=== PATIENT | male | born 1975 | race Caucasian/White ===

== ENCOUNTER 2018-02-06 13:43 | Emergency (ER) | payer OTHER ==
--- NOTE | 2018-02-06 15:00 | ER ---
Nurse's Notes [facility] Name: Coreen Lau Jr Age: 42 yrs Sex: Male : 1975 Arrival Date: 02/06/2018 Time: 13:45 Bed 12 Private MD: Out, [facility] Diagnosis: Acute maxillary sinusitis Presentation: 02/06 14:06 Presenting complaint: Patient states: when i look i feel,like i have "pulsing" on my hj forehead for few days now; denies fever and chills;. Transition of care: patient was not received from another setting of care. Onset of symptoms was February 06, 2018. Risk Assessment: Do you want to hurt yourself or someone else? Patient reports no desire to harm self or others. Initial Sepsis Screen: Does the patient meet any 2 criteria? No. Patient's initial sepsis screen is negative. Does the patient have a suspected source of infection? No. Patient's initial sepsis screen is negative. Care prior to arrival: None. 14:06 Method Of Arrival: Ambulatory 14:06 Acuity: SHAILA 4 hj Triage Assessment: 14:08 Headache History: Denies prior headaches. General: Appears in no apparent distress. hj uncomfortable, Behavior is calm, cooperative, appropriate for age. Pain: Complains of pain in head Pain currently is 8 out of 10 on a pain scale. Neuro: Level of Consciousness is awake, alert, obeys commands, Oriented to person, place, time, situation, Appropriate for age. 14:08 Pain: Pain began Also complains of sleeplessness. hj Historical: - Allergies: 14:07 Phenergan; - Home Meds: 14:07 Dilantin Oral [Active]; Keppra Oral [Active]; Januvia oral oral [Active]; hj - PMHx: 14:07 Diabetes - NIDDM; Pancreatitis; Seizures; hj - PSHx: 14:07 None; hj - Immunization history:: Adult Immunizations unknown. - Social history:: Smoking status: Patient/guardian denies using tobacco, Patient/guardian denies using alcohol. - Ebola Screening: : Patient negative for fever greater than or equal to 101.5 degrees Fahrenheit, and additional compatible Ebola Virus Disease symptoms Patient denies exposure to infectious person Patient denies travel to an Ebola-affected area in the 21 days before illness onset. Screenin:08 Abuse screen: Denies threats or abuse. Denies injuries from another. Nutritional hj screening: No deficits noted. Tuberculosis screening: No symptoms or risk factors identified. Fall Risk None identified. Vital Signs: 14:08 BP 127 / 84; Pulse 81; Resp 18; Temp 97.0(TE); Pulse Ox 100% on R/A; Weight 83.46 kg; hj Height 5 ft. 10 in. (177.80 cm); Pain 8/10; 14:08 Body Mass Index 26.40 (83.46 kg, 177.80 cm) ED Course: 13:45 Patient arrived in ED. sb2 13:45 Out, of Town is Private Physician. sb2 14:07 Triage completed. hj 14:08 Arm band placed on left wrist. hj 14:08 Patient has correct armband on for positive identification. Bed in low position. Call hj light in reach. Side rails up X 1. 14:46 Kevin Johnson MD is Attending Physician. 14:59 Maribeth Nails MD is Referral Physician. Administered Medications: No medications were administered Outcome: 14:59 Discharge ordered by . gs 15:16 Patient left the ED. dm5 Signatures: Lorraine Sherman RN RN dm5 Tevin Mcgowan RN RN Kevin Johnson MD MD Damari Chen sb2 Corrections: (The following items were deleted from the chart) 14:10 14:08 Pulse 81bpm; Resp 18bpm; Pulse Ox 100% RA; Temp 97.0F Temporal; 83.46 kg; Height hj 5 ft. 10 in.; BMI: 26.4; Pain 8/10; hj
--- NOTE | 2018-02-06 15:00 | EDPHYS ---
Physician Documentation [facility] Name: Coreen Lau Jr Age: 42 yrs Sex: Male : 1975 Arrival Date: 02/06/2018 Time: 13:45 Bed 12 Private MD: Out, [facility] ED Physician Kevin Johnson HPI: 02/06 14:53 This 42 yrs old Male presents to ER via Ambulatory with complaints of Sinus gs Pain. 14:53 Onset: The symptoms/episode began/occurred gradually, 2 day(s) ago. Severity of gs symptoms: At their worst the symptoms were moderate, in the emergency department the symptoms are unchanged. Modifying factors: The symptoms are alleviated by nothing, the symptoms are aggravated by nothing. Associated signs and symptoms: Pertinent negatives: chest pain, fever. The patient has experienced similar episodes in the past, several times. Historical: - Allergies: 14:07 Phenergan; hj - Home Meds: 14:07 Dilantin Oral [Active]; Keppra Oral [Active]; Januvia oral oral [Active]; hj - PMHx: 14:07 Diabetes - NIDDM; Pancreatitis; Seizures; hj - PSHx: 14:07 None; hj - Immunization history:: Adult Immunizations unknown. - Social history:: Smoking status: Patient/guardian denies using tobacco, Patient/guardian denies using alcohol. - Ebola Screening: : Patient negative for fever greater than or equal to 101.5 degrees Fahrenheit, and additional compatible Ebola Virus Disease symptoms Patient denies exposure to infectious person Patient denies travel to an Ebola-affected area in the 21 days before illness onset. ROS: 14:53 ENT: Positive for nasal discharge, sinus congestion, sinus pain. gs 14:53 All other systems are negative. Exam: 14:53 Head/Face: Normocephalic, atraumatic. Eyes: Pupils equal round and reactive to light, gs extra-ocular motions intact. Lids and lashes normal. Conjunctiva and sclera are non-icteric and not injected. Cornea within normal limits. Periorbital areas with no swelling, redness, or edema. Neck: Trachea midline, no thyromegaly or masses palpated, and no cervical lymphadenopathy. Supple, full range of motion without nuchal rigidity, or vertebral point tenderness. No Meningismus. Chest/axilla: Normal chest wall appearance and motion. Nontender with no deformity. No lesions are appreciated. Cardiovascular: Regular rate and rhythm with a normal S1 and S2. No gallops, murmurs, or rubs. Normal PMI, no JVD. No pulse deficits. Respiratory: Lungs have equal breath sounds bilaterally, clear to auscultation and percussion. No rales, rhonchi or wheezes noted. No increased work of breathing, no retractions or nasal flaring. Abdomen/GI: Soft, non-tender, with normal bowel sounds. No distension or tympany. No guarding or rebound. No evidence of tenderness throughout. Back: No spinal tenderness. No costovertebral tenderness. Full range of motion. Skin: Warm, dry with normal turgor. Normal color with no rashes, no lesions, and no evidence of cellulitis. MS/ Extremity: Pulses equal, no cyanosis. Neurovascular intact. Full, normal range of motion. Neuro: Awake and alert, GCS 15, oriented to person, place, time, and situation. Cranial nerves II-XII grossly intact. Motor strength 5/5 in all extremities. Sensory grossly intact. Cerebellar exam normal. Normal gait. 14:53 Constitutional: The patient appears alert, awake. 14:53 Head/face: Sinus tenderness, that is mild, is located over the right maxillary sinus and left maxillary sinus. 14:53 ENT: Nose: Nasal mucosa: edematous, erythematous, Posterior pharynx: is normal. Vital Signs: 14:08 BP 127 / 84; Pulse 81; Resp 18; Temp 97.0(TE); Pulse Ox 100% on R/A; Weight 83.46 kg; hj Height 5 ft. 10 in. (177.80 cm); Pain 8/10; 14:08 Body Mass Index 26.40 (83.46 kg, 177.80 cm) hj MDM: 14:53 Patient medically screened. 14:53 Differential Diagnosis: Upper Respiratory Infection Allergic Rhinitis Viral Syndrome gs Other sinusitus. Data reviewed: vital signs, nurses notes. Counseling: I had a detailed discussion with the patient and/or guardian regarding: the historical points, exam findings, and any diagnostic results supporting the discharge/admit diagnosis. Special discussion: I discussed with the patient/guardian that the patient's current presentation does not indicate dosing of antibiotics. They should follow-up with their primary care provider and return if the symptoms persist or progress. Administered Medications: No medications were administered Disposition: 02/06/18 14:59 Discharged to Home. Impression: Acute maxillary sinusitis. - Condition is Stable. - Discharge Instructions: Sinusitis, Adult. - Medication Reconciliation Form, Thank You Letter, Antibiotic Education, Prescription Opioid Use form. - Follow up: Maribeth Nails MD; When: 2 - 3 days; Reason: Re-evaluation by your physician. - Notes: instructed to take flonase,zyrtec and sinus irrigation with steril saline all available over the counter Signatures: Lorraine Sherman, RN RN dm5 Tevin Mcgowan RN RN Kevin Johnson MD MD gs Corrections: (The following items were deleted from the chart) 15:16 14:59 02/06/2018 14:59 Discharged to Home. Impression: Acute maxillary sinusitis. dm5 Condition is Stable. Forms are Medication Reconciliation Form, Thank You Letter, Antibiotic Education, Prescription Opioid Use. Follow up: Maribeth Nails; When: 2 - 3 days; Reason: Re-evaluation by your physician. gs
== END 2018-02-06 15:16 | disposition home or self-care (01) ==
LOC: ER 13:43
DX: J01.00 Acute maxillary sinusitis, unspecified (principal); E11.9 Type 2 diabetes mellitus without complications; Z79.84 Long term (current) use of oral hypoglycemic drugs; G40.909 Epilepsy, unspecified, not intractable, without status epilepticus; Z88.8 Allergy status to other drugs, medicaments and biological substances
CPT/HCPCS: 99281

== ENCOUNTER 2018-09-20 11:51 | Emergency (ER) | payer OTHER ==
--- NOTE | 2018-09-20 14:23 | RAD REPORT ---
EXAM DESCRIPTION: CT - Spine Lumbar Wo Con - 09/20/2018 2:05 pm CLINICAL HISTORY: Radiculopathy. LOWER BACK PAIN COMPARISON: No comparisons TECHNIQUE: Axial noncontrast CT imaging of the lumbar spine was performed with coronal and sagittal re-formatted images. All CT scans are performed using dose optimization technique as appropriate and may include automated exposure control or mA/KV adjustment according to patient size. FINDINGS: No acute lumbar spine fracture seen. No aggressive marrow pattern or malalignment. Paraspinal tissues are normal in thickness. No paraspinal abscess or hematoma seen. 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 Mild posterior disc bulges are present involving the lower lumba r spine. IMPRESSION: No acute lumbar spine abnormality is detected. Consider MRI follow-up for assessment of disc disease if clinically desired.
[2018-09-20] MEDS ORDERED: METHOCARBAMOL 1,000 MG/10 ML VIAL IV ONE (14:48)
[2018-09-20] MEDS ORDERED: DEXAMETHASONE 10 MG/ML VIAL ONE (14:48)
[2018-09-20] MEDS ORDERED: NA CHLORIDE 0.9% 100 ML IV ONE (14:48)
[2018-09-20] MEDS ORDERED: KETOROLAC 30 MG/ML INJ ONE (14:48)
[2018-09-20] MEDS ORDERED: FENTANYL CITR 100 MCG/2 ML ONE (16:07)
--- NOTE | 2018-09-20 16:12 | ER ---
Nurse's Notes [facility] Name: Coreen Lau Jr Age: 42 yrs Sex: Male : 1975 Arrival Date: 09/20/2018 Time: 11:55 Bed 13 Private MD: Diagnosis: Low back pain Presentation: 09/20 12:09 Presenting complaint: Patient states: low back pain started Tuesday and when he moves sv his feet or looks down he feels the pain go up his back. Denies fall or injury. Transition of care: patient was not received from another setting of care. Onset of symptoms was September 17, 2018. Care prior to arrival: None. 12:09 Method Of Arrival: Wheelchair sv 12:09 Acuity: SHAILA 4 sv 12:09 Acuity: SHAILA 3 sv 14:52 Risk Assessment: Do you want to hurt yourself or someone else? Patient reports no ph desire to harm self or others. Initial Sepsis Screen: Does the patient meet any 2 criteria? No. Patient's initial sepsis screen is negative. Does the patient have a suspected source of infection? No. Patient's initial sepsis screen is negative. Triage Assessment: 12:09 General: Appears in no apparent distress. uncomfortable, well developed, Behavior is sv calm, cooperative, appropriate for age. Pain: Complains of pain in back Pain currently is 10 out of 10 on a pain scale. Neuro: Level of Consciousness is awake, alert, obeys commands, Oriented to person, place, time, situation. Respiratory: Respiratory effort is even, unlabored, Respiratory pattern is regular, symmetrical. Historical: - Allergies: 12:13 No Known Allergies; sv - PMHx: 12:13 Diabetes - NIDDM; Pancreatitis; Seizures; epilepsy; sv - PSHx: 12:13 None; sv - Immunization history:: Adult Immunizations unknown. - Social history:: Patient/guardian denies using alcohol, street drugs, IV drugs, tobacco products, Smoking status: unknown. - Ebola Screening: : No symptoms or risks identified at this time. Screenin:52 Abuse screen: Denies threats or abuse. Denies injuries from another. Nutritional ph screening: No deficits noted. Tuberculosis screening: No symptoms or risk factors identified. Fall Risk None identified. Assessment: 14:00 General: Appears in no apparent distress. uncomfortable, well groomed, Behavior is ph calm, cooperative, appropriate for age. Pain: Complains of pain in low back area Pain radiates to lumbar area and left leg. Neuro: Level of Consciousness is awake, alert, obeys commands, Oriented to person, place, time, situation. Cardiovascular: Capillary refill < 3 seconds in bilateral fingers Patient's skin is warm and dry. Respiratory: Airway is patent Respiratory effort is even, unlabored, Respiratory pattern is regular, symmetrical. GI: No signs and/or symptoms were reported involving the gastrointestinal system. : Reports pain in bilateral in lower back Denies burning with urination, inability to void, urinary frequency. Derm: Skin is intact, is healthy with good turgor, Skin is pink, warm \T\ dry. Musculoskeletal: Circulation, motion, and sensation intact. 15:00 Reassessment: Patient appears in no apparent distress at this time. Patient and/or ph family updated on plan of care and expected duration. Pain level reassessed. Patient is alert, oriented x 3, equal unlabored respirations, skin warm/dry/pink. 16:00 Reassessment: Patient appears in no apparent distress at this time. Patient and/or ph family updated on plan of care and expected duration. Pain level reassessed. Patient is alert, oriented x 3, equal unlabored respirations, skin warm/dry/pink. Pt reports that pain has improved to 7/10 after additional pain medication. 16:20 Reassessment: Patient appears in no apparent distress at this time. Patient is alert, ph oriented x 3, equal unlabored respirations, skin warm/dry/pink. Pt d/c home w/ SO, ambulatory to [facility]. Vital Signs: 12:13 BP 112 / 79; Pulse 94; Resp 16; Temp 98.5; Pulse Ox 100% ; Weight 79.38 kg; Height 5 sv ft. 9 in. (175.26 cm); Pain 10/10; 14:30 BP 107 / 78; Pulse 87; Resp 18; Pulse Ox 98% on R/A; Pain 10/10; ph 15:30 BP 112 / 76; Pulse 79; Resp 16; Pulse Ox 98% on R/A; Pain 8/10; ph 16:20 BP 110 / 76; Pulse 82; Resp 18; Temp 98.2; Pulse Ox 99% ; Pain 7/10; ph 12:13 Body Mass Index 25.84 (79.38 kg, 175.26 cm) sv ED Course: 11:55 Patient arrived in ED. mr 12:12 Triage completed. sv 12:13 Arm band placed on. sv 13:25 Derrick Portillo PA is PHCP. jr8 13:25 Franklin Ledbetter MD is Attending Physician. jr8 13:30 Jazmin Morales, RN is Primary Nurse. ph 14:03 CT completed. Patient tolerated procedure well. Patient moved to CT via wheelchair. sj Patient moved back from CT. 14:05 CT Lumbar Spine Wo Con In Process Unspecified. EDMS 14:20 Missed attempt(s): 22 gauge in right antecubital area. Bleeding controlled, band aid jp3 applied, catheter tip intact. 14:25 Inserted saline lock: 22 gauge in left forearm, using aseptic technique. jp3 14:28 Bed in low position. Call light in reach. Side rails up X 1. Warm blanket given. Pillow jp3 given. 14:52 No provider procedures requiring assistance completed. ph 15:27 Urine Dipstick--Ancillary (enter results) Sent. jp3 16:26 IV discontinued, intact, bleeding controlled, No redness/swelling at site. Pressure ph dressing applied. Administered Medications: 14:50 Drug: Decadron - Dexamethasone 10 mg Route: IVP; Site: left antecubital; ph 16:22 Follow up: Response: No adverse reaction ph 14:51 Drug: Robaxin 1 grams Route: IVPB; Infused Over: 1 hrs; Site: left antecubital; ph 16:00 Follow up: Response: No adverse reaction; IV Status: Completed infusion ph 14:51 Drug: TORadol - Ketorolac 15 mg Route: IVP; Site: left antecubital; ph 16:22 Follow up: Response: No adverse reaction ph 16:00 Drug: fentaNYL (PF) 50 mcg Route: IVP; Site: left antecubital; ph 16:22 Follow up: Response: No adverse reaction; Pain is decreased ph Outcome: 16:12 Discharge ordered by . jr8 16:24 Discharged to home ambulatory, with significant other. ph 16:24 Condition: improved 16:24 Discharge instructions given to patient, significant other, Instructed on discharge instructions, follow up and referral plans. medication usage, Heat therapy Demonstrated understanding of instructions, follow-up care, medications, Prescriptions given X 1. 16:26 Patient left the ED. ph Signatures: Dispatcher [employer] Maribeth Kirkpatrick RN RN Henrique, Delma mr Andres, Derrick Gandara PA PA jr8 Jazmin Morales RN RN Deyvi Webb jp3
--- NOTE | 2018-09-20 16:12 | EDPHYS ---
Physician Documentation [facility] Name: Coreen Lau Jr Age: 42 yrs Sex: Male : 1975 Arrival Date: 09/20/2018 Time: 11:55 Bed 13 Private MD: ED Physician Franklin Ledbetter HPI: 09/20 13:40 This 42 yrs old Male presents to ER via Wheelchair with complaints of Back jr8 Pain. 13:40 The patient presents with pain that is acute, with no known mechanism of injury. The jr8 symptoms are located in the low back. Onset: The symptoms/episode began/occurred acutely, 3 day(s) ago. The pain radiates to the left leg. Associated signs and symptoms: Pertinent negatives: abdominal pain, chest pain, constipation, dysuria, fever, headache, hematuria, incontinence, nausea, numbness, tingling, urinary retention, vomiting, weakness. The problem was sustained from unknown cause. Modifying factors: The patient symptoms are alleviated by nothing, the patient symptoms are aggravated by any movement. The patient has not experienced similar symptoms in the past. The patient has been recently seen by a physician: [facility] 3 day(s) ago, with similar presenting complaints, and apparently given a diagnosis of low back strain, but the patient's symptoms have persisted. Historical: - Allergies: 12:13 No Known Allergies; sv - PMHx: 12:13 Diabetes - NIDDM; Pancreatitis; Seizures; epilepsy; sv - PSHx: 12:13 None; sv - Immunization history:: Adult Immunizations unknown. - Social history:: Patient/guardian denies using alcohol, street drugs, IV drugs, tobacco products, Smoking status: unknown. - Ebola Screening: : No symptoms or risks identified at this time. ROS: 13:40 Constitutional: Negative for fever, chills, and weight loss, Cardiovascular: Negative jr8 for chest pain, palpitations, and edema, Respiratory: Negative for shortness of breath, cough, wheezing, and pleuritic chest pain, Abdomen/GI: Negative for abdominal pain, nausea, vomiting, diarrhea, and constipation, MS/Extremity: Negative for injury and deformity, Skin: Negative for injury, rash, and discoloration, Neuro: Negative for headache, weakness, numbness, tingling, and seizure, Psych: Negative for depression, anxiety, suicide ideation, homicidal ideation, and hallucinations. 13:40 Back: Positive for pain at rest, pain with movement, radiated pain. 14:01 : Negative for injury, bleeding, discharge, and swelling. jr8 Exam: 13:40 Head/Face: Normocephalic, atraumatic. Neck: Trachea midline, no thyromegaly or masses jr8 palpated, and no cervical lymphadenopathy. Supple, full range of motion without nuchal rigidity, or vertebral point tenderness. No Meningismus. Cardiovascular: Regular rate and rhythm with a normal S1 and S2. No gallops, murmurs, or rubs. Normal PMI, no JVD. No pulse deficits. Respiratory: Lungs have equal breath sounds bilaterally, clear to auscultation and percussion. No rales, rhonchi or wheezes noted. No increased work of breathing, no retractions or nasal flaring. Abdomen/GI: Soft, non-tender, with normal bowel sounds. No distension or tympany. No guarding or rebound. No evidence of tenderness throughout. Skin: Warm, dry with normal turgor. Normal color with no rashes, no lesions, and no evidence of cellulitis. MS/ Extremity: Pulses equal, no cyanosis. Neurovascular intact. Full, normal range of motion. Neuro: Awake and alert, GCS 15, oriented to person, place, time, and situation. Cranial nerves II-XII grossly intact. Motor strength 5/5 in all extremities. Sensory grossly intact. Cerebellar exam normal. Normal gait. 13:40 Constitutional: The patient appears alert, awake, non-diaphoretic, non-toxic, uncomfortable. 13:40 Back: pain, that is severe, of the lumbar area and left low back, ROM is painful, with all movement, with flexion, with extension, normal spinal alignment noted, no deformity, CVA tenderness, is absent, vertebral tenderness, is not appreciated, muscle spasm, is not present, Straight leg raises: pain bilaterally. Vital Signs: 12:13 BP 112 / 79; Pulse 94; Resp 16; Temp 98.5; Pulse Ox 100% ; Weight 79.38 kg; Height 5 sv ft. 9 in. (175.26 cm); Pain 10/10; 14:30 BP 107 / 78; Pulse 87; Resp 18; Pulse Ox 98% on R/A; Pain 10/10; ph 15:30 BP 112 / 76; Pulse 79; Resp 16; Pulse Ox 98% on R/A; Pain 8/10; ph 16:20 BP 110 / 76; Pulse 82; Resp 18; Temp 98.2; Pulse Ox 99% ; Pain 7/10; ph 12:13 Body Mass Index 25.84 (79.38 kg, 175.26 cm) sv MDM: 13:25 Patient medically screened. [facility] 16:09 Differential diagnosis: chronic back pain, ruptured disc, spinal injury, low back jr8 sprain. Data reviewed: vital signs, nurses notes, lab test result(s), urinalysis, radiologic studies, CT scan. Counseling: I had a detailed discussion with the patient and/or guardian regarding: the historical points, exam findings, and any diagnostic results supporting the discharge/admit diagnosis, lab results, radiology results, the need for outpatient follow up, a family practitioner, to return to the emergency department if symptoms worsen or persist or if there are any questions or concerns that arise at home. Response to treatment: the patient's symptoms have markedly improved after treatment, patient is well hydrated. ED course: Patient responded well to medication. Is resting comfortably. Spoke with patient regarding prescriptions, follow up, and home care. Patient agrees to plan of care. . 09/20 14:51 Order name: Urine Dipstick--Ancillary (enter results) bd 09/20 13:52 Order name: CT Lumbar Spine Wo Con; Complete Time: 14:24 [facility] 09/20 13:51 Order name: Urine Dipstick-Ancillary (obtain specimen); Complete Time: 16:10 [facility] 09/20 13:52 Order name: IV; Complete Time: 14:28 [facility] Administered Medications: 14:50 Drug: Decadron - Dexamethasone 10 mg Route: IVP; Site: left antecubital; ph 16:22 Follow up: Response: No adverse reaction ph 14:51 Drug: Robaxin 1 grams Route: IVPB; Infused Over: 1 hrs; Site: left antecubital; ph 16:00 Follow up: Response: No adverse reaction; IV Status: Completed infusion ph 14:51 Drug: TORadol - Ketorolac 15 mg Route: IVP; Site: left antecubital; ph 16:22 Follow up: Response: No adverse reaction ph 16:00 Drug: fentaNYL (PF) 50 mcg Route: IVP; Site: left antecubital; ph 16:22 Follow up: Response: No adverse reaction; Pain is decreased ph Disposition: 18:37 Co-signature as Attending Physician, Franklin Ledbetter MD. rn Disposition: 09/20/18 16:12 Discharged to Home. Impression: Low back pain. - Condition is Stable. - Discharge Instructions: Back Pain, Adult, Back Injury Prevention, [id number], Back Exercises, [id number], Heat Therapy. - Prescriptions for Skelaxin 800 mg Oral Tablet - take 1 tablet by ORAL route every 8 hours As needed; 30 tablet. - Medication Reconciliation Form, Thank You Letter, Antibiotic Education, Prescription Opioid Use, Work release form form. - Follow up: Private Physician; When: 5 - 6 days; Reason: If symptoms return, Recheck today's complaints, Re-evaluation by your physician. - Problem is new. - Symptoms have improved. Signatures: Dispatcher [employer] Maribeth Kirkpatrick RN RN sv Nieto, Roman, MD MD rn Roszak, Josh, PA PA jr8 Jazmin Morales RN RN ph Corrections: (The following items were deleted from the chart) 16:26 16:12 09/20/2018 16:12 Discharged to Home. Impression: Low back pain. Condition is ph Stable. Forms are Medication Reconciliation Form, Thank You Letter, Antibiotic Education, Prescription Opioid Use. Follow up: Private Physician; When: 5 - 6 days; Reason: If symptoms return, Recheck today's complaints, Re-evaluation by your physician. Problem is new. Symptoms have improved. jr8
[2018-09-20 19:06] LABS: Urine Blood NEGATIVE (NEG); Urine Glucose 2+ (NEG); Urine Protein NEGATIVE (NEG); Urine Specific Gravity 1.015 (1.005-1.030)
== END 2018-09-20 16:26 | disposition home or self-care (01) ==
LOC: ER 11:51
DX: M54.5 Low back pain (principal); E11.9 Type 2 diabetes mellitus without complications; G40.909 Epilepsy, unspecified, not intractable, without status epilepticus
CPT/HCPCS: 72131; 81003; 96365; 96375; 99284; J1100; J2800; J3010

== ENCOUNTER 2019-03-12 08:04 | Inpatient (IN) | payer BC, OTHER ==
[2019-03-12] MEDS ORDERED: NA CHLORIDE 0.9% 3,000 ML ONE (08:41)
[2019-03-12 08:42] LABS: Absolute Lymphocytes (CBC) 1.1 K/uL (0.7-4.9); Basophils % 0.1 % (0-1.3); Hematocrit 50.1 % (39.6-49.0); Lymphocytes % 7.5 % (15.3-44.8); MPV 8.8 fL (7.6-11.3); RBC Red Blood Cell Count 5.59 M/uL (4.33-5.43)
[2019-03-12] MEDS ORDERED: CEFTRIAXONE/SWI 1gm 2 GM/20 ML SYR ONE (08:50)
[2019-03-12 09:00] LABS: Albumin 4.3 g/dL (3.4-5.0); Bilirubin Direct 0.2 mg/dL (0-0.2); Bilirubin Total 0.9 mg/dL (0.2-1.0); Potassium 4.2 mmol/L (3.5-5.1); Protein, Total 7.9 g/dL (6.4-8.2)
--- NOTE | 2019-03-12 09:05 | RAD REPORT ---
EXAM DESCRIPTION: CT - Head Brain Wo Cont - 03/12/2019 8:52 am CLINICAL HISTORY: Transient alteration of awareness COMPARISON: None. TECHNIQUE: Axial 5 mm thick images of the head were obtained without IV contrast. All CT scans are performed using dose optimization technique as appropriate and may include automated exposure control or mA/KV adjustment according to patient size. FINDINGS: No intracranial hemorrhage, mass, edema or shift of mid-line structures. No acute infarcti on changes seen. No abnormal extra-axial fluid collections. Ventricles are normal. Mastoid air cells are clear. Partially visualized right maxillary sinus is fully opacified. Sinus wal l thickening is present. No acute bony findings. IMPRESSION: No intracranial abnormality identifiable. Chronic sinusitis of the right maxillary sinus.
[2019-03-12 09:07] LABS: Barbiturates NEGATIVE (NEGATIVE); Benzodiazepines NEGATIVE (NEGATIVE); Cocaine NEGATIVE (NEGATIVE); METHAMPHETAM NEGATIVE (NEGATIVE); Methadone NEGATIVE (NEGATIVE); Opiates NEGATIVE (NEGATIVE); Phencyclidine NEGATIVE (NEGATIVE); THC Cannibis NEGATIVE (NEGATIVE)
[2019-03-12 09:26] LABS: Protime INR 1.07
[2019-03-12 09:30] LABS: Arterial Blood Carboxyhemoglob 1.4 % (0-1.5); Blood Gas Oxyhemoglobin 93.4 % (94-97); Blood O2 Saturation 95.6 % (92-98.5)
--- NOTE | 2019-03-12 09:39 | RAD REPORT ---
EXAM DESCRIPTION: RAD - Chest Single View - 03/12/2019 8:53 am CLINICAL HISTORY: Cough COMPARISON: August 2016 TECHNIQUE: AP portable chest image was obtained 0847 hours . FINDINGS: Lungs are clear. Heart and vasculature are normal. No measurable pleural effusion and no p neumothorax. No acute bony abnormality seen. No acute aortic findings suspected. IMPRESSION: No acute cardiopulmonary process. No significant interval change.
[2019-03-12 09:43] LABS: NT PRO-BNP 94 pg/mL (<125); Phenytoin (Dilantin) Level 12.3 ug/mL (10.0-20.0); Troponin (Emerg Dept Use Only) < 0.02 ng/mL (0.0-0.045)
[2019-03-12 09:54] LABS: Blood Morphology Comment NOT SEEN (NOT SEEN); Platelet Estimate ADEQ; Urine White Blood Cell Casts OK
--- NOTE | 2019-03-12 10:26 | ER ---
Nurse's Notes [facility] Name: Coreen Lau Jr Age: 43 yrs Sex: Male : 1975 Arrival Date: 03/12/2019 Time: 08:09 Bed 5 Private MD: Out, [facility] Diagnosis: Fever, unspecified;Vomiting;Elevated white blood cell count;Type 2 diabetes mellitus;Weakness;Acute sinusitis Presentation: 03/12 08:12 Presenting complaint: states: vomiting, subjective fever x 1 day. c/o congestion sv recently. Hx DM but does not take any of his meds for it because it makes him sick. Transition of care: patient was not received from another setting of care. Onset of symptoms was March 11, 2019. Initial Sepsis Screen: Does the patient meet any 2 criteria? No. Patient's initial sepsis screen is negative. Does the patient have a suspected source of infection? No. Patient's initial sepsis screen is negative. Care prior to arrival: Medication(s) given: Phenergan, taken \T\0300 Tylenol, taken \T\0400. 08:12 Method Of Arrival: Ambulatory sv 08:12 Acuity: SHAILA 3 sv 08:20 Risk Assessment: Do you want to hurt yourself or someone else? Patient reports no ph desire to harm self or others. 08:20 Initial Sepsis Screen: Does the patient meet any 2 criteria?. ph Triage Assessment: 08:15 General: Appears in no apparent distress. uncomfortable, Behavior is cooperative, sv restless. Pain: Denies pain. Neuro: Level of Consciousness is awake, obeys commands, lethargic, Oriented to person, place, time, situation. Respiratory: Respiratory effort is even, unlabored, Respiratory pattern is regular, symmetrical. GI: Reports vomiting. Derm: Skin is clammy, Skin is normal. Historical: - Allergies: 08:23 No Known Allergies; sv - Home Meds: 08:23 Dilantin Oral [Active]; Januvia Oral [Active]; Keppra Oral [Active]; sv hydrocodone-acetaminophen 10-325 mg Oral tab [Active]; Adderall XR Oral [Active]; - PMHx: 08:23 Diabetes - NIDDM; epilepsy; Pancreatitis; Seizures; ADD/ADHD; sv - PSHx: 08:23 None; sv - Immunization history:: Adult Immunizations up to date. - Social history:: Smoking status: Patient uses tobacco products, chewing tobacco, Patient/guardian denies using alcohol. - Ebola Screening: : No symptoms or risks identified at this time. Screenin:19 Abuse screen: Denies threats or abuse. Denies injuries from another. Nutritional ph screening: No deficits noted. Tuberculosis screening: No symptoms or risk factors identified. 08:30 Fall Risk None identified. sv Assessment: 10:17 Reassessment: Patient appears in no apparent distress at this time. Patient and/or sv family updated on plan of care and expected duration. Pain level reassessed. Neuro: Level of Consciousness is obeys commands, lethargic. Respiratory: Airway is patent Respiratory effort is even, unlabored, Respiratory pattern is regular, symmetrical. 10:42 Reassessment: Patient and/or family updated on plan of care and expected duration. Pain sv level reassessed. GI: Pt is actively vomiting bile, smells of bowel, informed Dr Humphrey, nausea med ordered. 11:18 Reassessment: pt back from CT scan. C/O abdl pain, notified provider. General: Appears ca1 in no apparent distress. ill, Behavior is calm, cooperative, appropriate for age, drowsy. Pain: Complains of pain in abdomen Pain currently is 8 out of 10 on a pain scale. Cardiovascular: Heart tones S1 S2 present Capillary refill < 3 seconds Patient's skin is warm and dry. Rhythm is sinus rhythm. Respiratory: Airway is patent Respiratory effort is even, unlabored, Respiratory pattern is regular, symmetrical, Breath sounds are clear bilaterally. GI: Abdomen is flat, non-distended, Bowel sounds present X 4 quads. Abd is soft and non tender X 4 quads. Reports vomiting. : No deficits noted. No signs and/or symptoms were reported regarding the genitourinary system. EENT: No deficits noted. No signs and/or symptoms were reported regarding the EENT system. Derm: Skin is intact, is healthy with good turgor, Skin is pink, warm \T\ dry. Musculoskeletal: Circulation, motion, and sensation intact. Capillary refill < 3 seconds. 11:30 Reassessment: Pt c/o nausea and vomiting 50ml. Notified provider. ca1 11:53 Reassessment: Patient appears in no apparent distress at this time. Pt eye's closed, ca1 responds to verbal stimuli. Equal and unlabored breathing. Skin pink, warm and dry. Family still at bedside. 12:24 Reassessment: Patient appears in no apparent distress at this time. No changes from ca1 previously documented assessment. No reports of pain, N/V at this time. 13:19 Reassessment: Patient appears in no apparent distress at this time. Patient and/or ca1 family updated on plan of care and expected duration. Pain level reassessed. Pt vomited once 30mL. Pt c/o abdl pain. Notified provider. Orders given. 14:16 Reassessment: Patient appears in no apparent distress at this time. Patient and/or ca1 family updated on plan of care and expected duration. Pain level reassessed. Awaiting room assignment. No reports of N/V/pain at this time. Pt's eyes closed, awaken with verbal stimuli. Equal and unlabored breathing. Skin, pink, warm and dry. 15:01 Reassessment: Patient appears in no apparent distress at this time. No changes from ca1 previously documented assessment. Vital Signs: 08:24 BP 157 / 100; Pulse 89; Resp 20; Temp 97.7; Pulse Ox 99% ; sv 08:32 BP 157 / 94; sv 08:40 Weight 79.38 kg (R); sv 09:36 BP 160 / 84; Pulse 83; Resp 26; Pulse Ox 100% on 2 lpm NC; sv 10:13 BP 159 / 85; Pulse 86; Resp 18; Pulse Ox 100% on 2 lpm NC; sv 11:21 BP 141 / 71; Pulse 97; Resp 14; Pulse Ox 100% on R/A; ca1 12:17 BP 138 / 77; Pulse 102; Resp 28 S; Temp 99.1(TE); Pulse Ox 97% on R/A; ca1 13:19 BP 145 / 77; Pulse 92; Resp 26 S; Pulse Ox 98% on R/A; ca1 14:16 BP 153 / 86; Pulse 92; Resp 22 S; Pulse Ox 98% on R/A; ca1 15:01 BP 158 / 89; Pulse 99; Resp 19 S; Temp 98.9(O); Pulse Ox 99% on R/A; ca1 ED Course: 08:09 Patient arrived in ED. mr 08:15 Zohaib Humphrey MD is Attending Physician. dave 08:17 Kim, Maribeth, RN is Primary Nurse. sv 08:22 Triage completed. sv 08:24 Arm band placed on. sv 08:24 Patient has correct armband on for positive identification. Bed in low position. Call sv light in reach. Adult w/ patient. Pulse ox on. NIBP on. 08:30 Inserted saline lock: 20 gauge in right antecubital area, using aseptic technique. sv Blood collected. Flushed right antecubital with 5 ml normal saline. 08:33 Out, of [facility] is Private Physician. sv 08:44 Urine collected: clean catch specimen, tea colored. mh5 08:51 Urine Dipstick--Ancillary (enter results) Sent. mh5 08:51 Urine Drug Screen Sent. mh5 08:51 Urine Culture Sent. mh5 08:52 XRAY Chest (1 view) In Process Unspecified. EDMS 08:52 CT Head Brain wo Cont In Process Unspecified. EDMS 08:56 EKG done, by rfid technician. reviewed by Zohaib Humphrey MD. at1 09:06 Side rails up X2. Seizure precautions initiated. mh5 09:14 Dilantin Sent. sv 09:14 Magnesium Sent. sv 09:14 NT PRO-BNP Sent. sv 09:14 PT-INR Sent. sv 09:14 Troponin (emerg Dept Use Only) Sent. sv 09:30 ABG drawn. by RT staff, on room air. sv 09:36 Awaiting lab results. sv 09:46 Notified ED physician of a critical lab result(s). lactate-3.8. sv 10:24 Taco Patel MD is Hospitalizing Provider. dave 10:50 Armand Lawton MD is Hospitalizing Provider. dave 11:02 CT Chest, Abdomen, Pelvis - W/Contrast: iv only In Process Unspecified. EDMS 11:16 Report given to Shasha OLSEN. sv 11:20 No provider procedures requiring assistance completed. ca1 12:17 Repeat lab(s) drawn. by la, sent to lab. jp3 14:38 Shasha Fajardo, RN is Primary Nurse. ca1 14:51 Patient admitted, IV remains in place. ca1 Administered Medications: 09:14 Drug: NS 0.9% (30 ml/kg) 30 ml/kg Route: IV; Rate: bolus; Site: left forearm; sv 10:30 Follow up: Response: No adverse reaction; IV Status: Completed infusion; IV Intake: sv 2381ml 09:14 Drug: Rocephin 2 grams Route: IV; Rate: per protocol; Site: left forearm; sv 09:18 Follow up: Response: No adverse reaction; IV Status: Completed infusion; IV Intake: 20mlsv 10:46 Drug: Zofran 4 mg Route: IVP; Site: left forearm; ph 11:16 Follow up: Response: No adverse reaction; Marked relief of symptoms sv 10:55 Drug: Pepcid 20 mg Route: IVP; Site: left forearm; sv 11:16 Follow up: Response: No adverse reaction sv 10:55 Drug: Flagyl 500 mg Volume: 100 ml; Route: IVPB; Rate: 200 ml/hr; Infused Over: 30 sv mins; Site: left forearm; 12:27 Follow up: Response: No adverse reaction; IV Status: Completed infusion ca1 11:10 Drug: Fosphenytoin 500 mg Route: IVPB; Site: right antecubital; ca1 12:26 Follow up: Response: No adverse reaction; IV Status: Completed infusion ca1 11:21 Drug: morphine 2 mg {Note: RASS - -1.} Route: IVP; Site: right antecubital; ca1 12:26 Follow up: Response: No adverse reaction; Pain is decreased; RASS: Alert and Calm (0) ca1 11:29 Drug: Zofran 4 mg Route: IVP; Site: left antecubital; ca1 12:25 Follow up: Response: No adverse reaction; Nausea is decreased; Vomiting decreased ca1 11:30 Drug: NS 0.9% 1000 ml Route: IV; Rate: 125 ml/hr; Site: left antecubital; ca1 12:25 Follow up: IV Status: Infusion continued upon admission ca1 11:35 Drug: Insulin Regular Human 6 units {Co-Signature: iw (Nhi Fofana RN).} Route: ca1 Sub-Q; Site: left lower abdomen; 12:24 Follow up: Response: No adverse reaction; Blood sugar is lowered ca1 11:50 Drug: LanTUS 30 units Route: Sub-Q; Site: right lower abdomen; ca1 12:25 Follow up: Response: No adverse reaction ca1 13:21 Drug: morphine 2 mg {Note: RASS - -1.} Route: IVP; Site: left antecubital; ca1 14:19 Follow up: Response: No adverse reaction; Pain is decreased; RASS: Drowsy (-1) ca1 13:21 Drug: Phenergan 12.5 mg Route: IVP; Site: right antecubital; ca1 14:18 Follow up: Response: No adverse reaction; Nausea is decreased; Vomiting decreased ca1 Intake: 09:18 IV: 20ml; Total: 20ml. sv 10:30 IV: 2381ml; Total: 2401ml. sv Output: 10:45 Gastric: 500ml (Emesis); Total: 500ml. sv Outcome: 10:25 Decision to Hospitalize by Provider. dave 15:00 Admitted to Tele accompanied by tech, via wheelchair, room 424, with chart, Report ca1 called to PRETTY Dumont 15:00 Condition: stable 15:00 Instructed on the need for admit. 15:13 Patient left the ED. ca1 Signatures: Dispatcher [employer] EDMaribeth Marie RN RN sv Anderson, Corey, MD MD cha Rivera, Sigrid Fox, golf course designer EKG Tat1 Jazmin Morales RN RN Elizabeth Lawler 5 Deyvi Webb jp3 Shasha Fajardo RN RN ca1 Nhi Fofana RN iw Corrections: (The following items were deleted from the chart) 08:31 08:24 BP 157 / 100; Pulse 133bpm; Resp 20bpm; Pulse Ox 99%; Temp 97.7F; sv sv 14:17 14:16 Reassessment: Patient appears in no apparent distress at this time. No changes ca1 from previously documented assessment. Patient and/or family updated on plan of care and expected duration. Pain level reassessed. Awaiting room assignment ca1 14:18 12:17 BP 138 / 77; Pulse 102bpm; Resp 28bpm; Pulse Ox 97% RA; Temp 99.1F Temporal; mh5 ca1 14:18 13:19 BP 145 / 77; Pulse 92bpm; Resp 26bpm; Pulse Ox 98% RA; ca1 ca1 14:18 14:16 BP 153 / 86; Pulse 92bpm; Resp 22bpm; Pulse Ox 98% RA; ca1 ca1 15:03 15:01 Reassessment: Patient appears in no apparent distress at this time. Patient is ca1 alert, oriented x 3, equal unlabored respirations, skin warm/dry/pink. ca1
--- NOTE | 2019-03-12 10:27 | EDPHYS ---
Physician Documentation [facility] Name: Coreen Lau Jr Age: 43 yrs Sex: Male : 1975 Arrival Date: 03/12/2019 Time: 08:09 Bed 5 Private MD: Out, [facility] ED Physician Zohaib Humphrey HPI: 03/12 08:39 This 43 yrs old Male presents to ER via Ambulatory with complaints of dave Vomiting, Fever. 08:39 The patient presents to the emergency department with nausea, vomiting, that is dave continuous. Historical: - Allergies: 08:23 No Known Allergies; sv - Home Meds: 08:23 Dilantin Oral [Active]; Januvia Oral [Active]; Keppra Oral [Active]; sv hydrocodone-acetaminophen 10-325 mg Oral tab [Active]; Adderall XR Oral [Active]; - PMHx: 08:23 Diabetes - NIDDM; epilepsy; Pancreatitis; Seizures; ADD/ADHD; sv - PSHx: 08:23 None; sv - Immunization history:: Adult Immunizations up to date. - Social history:: Smoking status: Patient uses tobacco products, chewing tobacco, Patient/guardian denies using alcohol. - Ebola Screening: : No symptoms or risks identified at this time. ROS: 08:44 Eyes: Negative for injury, pain, redness, and discharge, ENT: Negative for injury, dave pain, and discharge, Neck: Negative for injury, pain, and swelling, Cardiovascular: Negative for chest pain, palpitations, and edema, Respiratory: Negative for shortness of breath, cough, wheezing, and pleuritic chest pain, Abdomen/GI: Negative for abdominal pain, nausea, vomiting, diarrhea, and constipation, Back: Negative for injury and pain, : Negative for injury, bleeding, discharge, and swelling, MS/Extremity: Negative for injury and deformity, Skin: Negative for injury, rash, and discoloration, Psych: Negative for depression, anxiety, suicide ideation, homicidal ideation, and hallucinations, Allergy/Immunology: Negative for hives, rash, and allergies, Endocrine: Negative for neck swelling, polydipsia, polyuria, polyphagia, and marked weight changes. 08:44 Constitutional: Positive for body aches, chills, malaise, poor PO intake. 08:44 Neuro: Positive for altered mental status, weakness. Exam: 08:44 Constitutional: This is a well developed, well nourished patient who is awake, alert, dave and in no acute distress. Head/Face: Normocephalic, atraumatic. Eyes: Pupils equal round and reactive to light, extra-ocular motions intact. Lids and lashes normal. Conjunctiva and sclera are non-icteric and not injected. Cornea within normal limits. Periorbital areas with no swelling, redness, or edema. ENT: Nares patent. No nasal discharge, no septal abnormalities noted. Tympanic membranes are normal and external auditory canals are clear. Oropharynx with no redness, swelling, or masses, exudates, or evidence of obstruction, uvula midline. Mucous membranes moist. Neck: Trachea midline, no thyromegaly or masses palpated, and no cervical lymphadenopathy. Supple, full range of motion without nuchal rigidity, or vertebral point tenderness. No Meningismus. Chest/axilla: Normal chest wall appearance and motion. Nontender with no deformity. No lesions are appreciated. Cardiovascular: Regular rate and rhythm with a normal S1 and S2. No gallops, murmurs, or rubs. Normal PMI, no JVD. No pulse deficits. Respiratory: Lungs have equal breath sounds bilaterally, clear to auscultation and percussion. No rales, rhonchi or wheezes noted. No increased work of breathing, no retractions or nasal flaring. Abdomen/GI: Soft, non-tender, with normal bowel sounds. No distension or tympany. No guarding or rebound. No evidence of tenderness throughout. Back: No spinal tenderness. No costovertebral tenderness. Full range of motion. Male : Normal genitalia with no discharge or lesions. Skin: Warm, dry with normal turgor. Normal color with no rashes, no lesions, and no evidence of cellulitis. MS/ Extremity: Pulses equal, no cyanosis. Neurovascular intact. Full, normal range of motion. Psych: Awake, alert, with orientation to person, place and time. Behavior, mood, and affect are within normal limits. 08:44 Neuro: Orientation: is normal, appropriate for stated age, no acute changes, Mentation: slow to respond, Memory: unable to test, Cranial nerves: grossly normal, is grossly normal based on the patient's age, no acute changes, Cerebellar function: unable to test, Gait: not tested. seizure activity, is not displayed by the patient. Vital Signs: 08:24 BP 157 / 100; Pulse 89; Resp 20; Temp 97.7; Pulse Ox 99% ; sv 08:32 BP 157 / 94; sv 08:40 Weight 79.38 kg (R); sv 09:36 BP 160 / 84; Pulse 83; Resp 26; Pulse Ox 100% on 2 lpm NC; sv 10:13 BP 159 / 85; Pulse 86; Resp 18; Pulse Ox 100% on 2 lpm NC; sv 11:21 BP 141 / 71; Pulse 97; Resp 14; Pulse Ox 100% on R/A; ca1 12:17 BP 138 / 77; Pulse 102; Resp 28 S; Temp 99.1(TE); Pulse Ox 97% on R/A; ca1 13:19 BP 145 / 77; Pulse 92; Resp 26 S; Pulse Ox 98% on R/A; ca1 14:16 BP 153 / 86; Pulse 92; Resp 22 S; Pulse Ox 98% on R/A; ca1 15:01 BP 158 / 89; Pulse 99; Resp 19 S; Temp 98.9(O); Pulse Ox 99% on R/A; ca1 MDM: 08:15 Patient medically screened. [facility] 08:46 Data reviewed: vital signs, nurses notes, lab test result(s), EKG, radiologic studies, dave CT scan, doppler, plain films. 03/12 08:20 Order name: [facility]SB[facility] Nova 03/12 08:24 Order name: Basic Metabolic Panel; Complete Time: 10:22 sv 03/12 08:24 Order name: CBC with Diff; Complete Time: 10:22 sv 03/12 08:24 Order name: Creatinine for Radiology; Complete Time: 10:22 sv 03/12 08:24 Order name: Hepatic Function; Complete Time: 10:22 sv 03/12 08:24 Order name: Lipase; Complete Time: 10: sv 03/12 08:31 Order name: Ketone, Serum; Complete Time: 10:22 sv 03/12 08:39 Order name: Magnesium dave 03/12 08:39 Order name: NT PRO-BNP dave 03/12 08:39 Order name: PT-INR [facility] 03/12 08:39 Order name: Troponin (emerg Dept Use Only) dave 03/12 08:39 Order name: Dilantin [facility] 03/12 08:39 Order name: Blood Culture Adult (2) [facility] 03/12 08:39 Order name: Procalcitonin; Complete Time: 10:22 [facility] 03/12 08:39 Order name: Lactate; Complete Time: 10:22 [facility] 03/12 08:39 Order name: Urine Culture [facility] 03/12 08:39 Order name: Acetaminophen; Complete Time: 10:22 [facility] 03/12 08:39 Order name: ETOH Level; Complete Time: 10:22 [facility] 03/12 08:39 Order name: Ptt, Activated; Complete Time: 10:22 [facility] 03/12 08:39 Order name: Salicylate; Complete Time: 10:22 [facility] 03/12 08:39 Order name: Urine Drug Screen; Complete Time: 10:22 [facility] 03/12 08:40 Order name: Magnesium; Complete Time: 10:22 [facility] 03/12 08:40 Order name: NT PRO-BNP; Complete Time: 10:22 [facility] 03/12 08:40 Order name: Protime (+INR); Complete Time: 10:22 [facility] 03/12 08:40 Order name: Troponin (Emerg Dept Use Only); Complete Time: 10:22 [facility] 03/12 08:40 Order name: Phenytoin (Dilantin) Level; Complete Time: 10:22 [facility] 03/12 08:49 Order name: ABG [facility] 03/12 08:50 Order name: Urine Dipstick--Ancillary (enter results) 03/12 09:49 Order name: ABG Arterial Blood Gas [facility] 03/12 09:54 Order name: CBC Smear Scan; Complete Time: 10:22 [facility] 03/12 08:24 Order name: IV Saline Lock; Complete Time: 08:32 sv 03/12 08:24 Order name: Labs collected and sent; Complete Time: 08:32 sv 03/12 08:39 Order name: XRAY Chest (1 view); Complete Time: 10:22 [facility] 03/12 08:39 Order name: EKG; Complete Time: 08:40 [facility] 03/12 08:39 Order name: Cardiac monitoring; Complete Time: 09:15 [facility] 03/12 08:39 Order name: EKG - Nurse/Tech; Complete Time: 09:15 [facility] 03/12 08:39 Order name: O2 Per Protocol; Complete Time: 09:15 [facility] 03/12 08:39 Order name: O2 Sat Monitoring; Complete Time: 09:15 [facility] 03/12 08:39 Order name: CT Head Brain wo Cont; Complete Time: 10:22 [facility] 03/12 08:39 Order name: Urine Dipstick-Ancillary (obtain specimen); Complete Time: 08:51 [facility] 03/12 08:39 Order name: Seizure Precautions; Complete Time: 09:06 [facility] 03/12 10:30 Order name: Influenza Screen (a \T\ B); Complete Time: 11:25 [facility] 03/12 10:43 Order name: CT Chest, Abdomen, Pelvis - W/Contrast: iv only; Complete Time: 11:25 [facility] 03/12 12:41 Order name: NOVA ca1 03/12 12:47 Order name: Lactate Sepsis 2 HR Follow-up EDMS 03/12 13:07 Order name: Glucose, Ancillary Testing EDMS Administered Medications: 09:14 Drug: NS 0.9% (30 ml/kg) 30 ml/kg Route: IV; Rate: bolus; Site: left forearm; sv 10:30 Follow up: Response: No adverse reaction; IV Status: Completed infusion; IV Intake: sv 2381ml 09:14 Drug: Rocephin 2 grams Route: IV; Rate: per protocol; Site: left forearm; sv 09:18 Follow up: Response: No adverse reaction; IV Status: Completed infusion; IV Intake: 20mlsv 10:46 Drug: Zofran 4 mg Route: IVP; Site: left forearm; ph 11:16 Follow up: Response: No adverse reaction; Marked relief of symptoms sv 10:55 Drug: Pepcid 20 mg Route: IVP; Site: left forearm; sv 11:16 Follow up: Response: No adverse reaction sv 10:55 Drug: Flagyl 500 mg Volume: 100 ml; Route: IVPB; Rate: 200 ml/hr; Infused Over: 30 sv mins; Site: left forearm; 12:27 Follow up: Response: No adverse reaction; IV Status: Completed infusion ca1 11:10 Drug: Fosphenytoin 500 mg Route: IVPB; Site: right antecubital; ca1 12:26 Follow up: Response: No adverse reaction; IV Status: Completed infusion ca1 11:21 Drug: morphine 2 mg {Note: RASS - -1.} Route: IVP; Site: right antecubital; ca1 12:26 Follow up: Response: No adverse reaction; Pain is decreased; RASS: Alert and Calm (0) ca1 11:29 Drug: Zofran 4 mg Route: IVP; Site: left antecubital; ca1 12:25 Follow up: Response: No adverse reaction; Nausea is decreased; Vomiting decreased ca1 11:30 Drug: NS 0.9% 1000 ml Route: IV; Rate: 125 ml/hr; Site: left antecubital; ca1 12:25 Follow up: IV Status: Infusion continued upon admission ca1 11:35 Drug: Insulin Regular Human 6 units {Co-Signature: iw (Nhi Fofana RN).} Route: ca1 Sub-Q; Site: left lower abdomen; 12:24 Follow up: Response: No adverse reaction; Blood sugar is lowered ca1 11:50 Drug: LanTUS 30 units Route: Sub-Q; Site: right lower abdomen; ca1 12:25 Follow up: Response: No adverse reaction ca1 13:21 Drug: morphine 2 mg {Note: RASS - -1.} Route: IVP; Site: left antecubital; ca1 14:19 Follow up: Response: No adverse reaction; Pain is decreased; RASS: Drowsy (-1) ca1 13:21 Drug: Phenergan 12.5 mg Route: IVP; Site: right antecubital; ca1 14:18 Follow up: Response: No adverse reaction; Nausea is decreased; Vomiting decreased ca1 Disposition: 03/12/19 10:25 Hospitalization ordered by Armand Lawton for Inpatient Admission. Preliminary diagnosis are Fever, unspecified, Vomiting, Elevated white blood cell count, Type 2 diabetes mellitus, Weakness, Acute sinusitis. - Bed requested for Telemetry/MedSurg (Inpatient). - Status is Inpatient Admission. ca1 - Condition is Fair. - Problem is new. - Symptoms have improved. UTI on Admission? No Signatures: Dispatcher [employer] EDMS Capri Perez Stephanie, RN Zohaib Padron MD MD cha Hall, Patricia RN RN Shasha Fajardo RN RN ca1 Nhi Fofana RN iw Corrections: (The following items were deleted from the chart) 10:30 10:25 Hospitalization Ordered by Taco Patel MD for Inpatient Admission. Preliminary dave diagnosis is Fever, unspecified; Vomiting; Elevated white blood cell count; Type 2 diabetes mellitus; Weakness. Bed requested for Telemetry/MedSurg (Inpatient). Status is Inpatient Admission. Condition is Fair. Problem is new. Symptoms have improved. UTI on Admission? No. dave 10:50 10:30 03/12/2019 10:25 Hospitalization Ordered by Taco Patel MD for Inpatient dave Admission. Preliminary diagnosis is Fever, unspecified; Vomiting; Elevated white blood cell count; Type 2 diabetes mellitus; Weakness; Acute sinusitis. Bed requested for Telemetry/MedSurg (Inpatient). Status is Inpatient Admission. Condition is Fair. Problem is new. Symptoms have improved. UTI on Admission? No. [facility] 14:38 10:50 03/12/2019 10:25 Hospitalization Ordered by Armand Lawton MD for Inpatient bd Admission. Preliminary diagnosis is Fever, unspecified; Vomiting; Elevated white blood cell count; Type 2 diabetes mellitus; Weakness; Acute sinusitis. Bed requested for Telemetry/MedSurg (Inpatient). Status is Inpatient Admission. Condition is Fair. Problem is new. Symptoms have improved. UTI on Admission? No. [facility] 15:13 14:38 03/12/2019 10:25 Hospitalization Ordered by Armand Lawton MD for Inpatient ca1 Admission. Preliminary diagnosis is Fever, unspecified; Vomiting; Elevated white blood cell count; Type 2 diabetes mellitus; Weakness; Acute sinusitis. Bed requested for Telemetry/MedSurg (Inpatient). Status is Inpatient Admission. Condition is Fair. Problem is new. Symptoms have improved. UTI on Admission? No. bd
[2019-03-12] MEDS ORDERED: ONDANSETRON 4 MG/2 ML VIAL ONE ×2 (10:43→11:32)
[2019-03-12] MEDS ORDERED: FOSPHENYTOIN PE 500 MG in NA CHLORIDE 0.9% 100 ML IV ONE (10:45)
[2019-03-12] MEDS ORDERED: FAMOTIDINE 20 MG/2 ML VIAL IV ONE (10:46)
[2019-03-12] MEDS ORDERED: METRONIDAZOLE 500mg IVPB 500 MG/100 ML BAG IV ONE (10:46)
--- NOTE | 2019-03-12 11:14 | RAD REPORT ---
EXAM DESCRIPTION: CT - Chest Abdomen Pelvis W Cont - 03/12/2019 11:01 am CLINICAL HISTORY: Chest and abdomen pain. Congestion;Cough COMPARISON: No comparisons TECHNIQUE: Approximately 100 mL nonionic IV contrast was administered to the patient. All CT scans are performed using dose optimization technique as appropriate and may include automated exposure control or mA/KV adjustment according to patient size. FINDINGS: The lungs are clear.No pleural or pericardial effusion.No intrathoracic adenopathy. The liver demonstrates diffuse fatty infiltration. The spleen, pancreas, adrenal glands and kidneys a re within normal limits. No bowel obstruction, free air, free fluid or abscess. Normal appendix. Small fat containing umbilica l hernia. Moderate stool is present in the colon. No pathologic lymphadenopathy in the abdomen or pel vis. No worrisome osseous finding. IMPRESSION: No acute or aggressive abnormality detected.
[2019-03-12] MEDS ORDERED: MORPHINE 4 MG/ML SYR ONE (11:15)
[2019-03-12] MEDS ORDERED: NA CHLORIDE 0.9% 1,000 ML ONE (11:32)
[2019-03-12] MEDS ORDERED: INSULIN -REGULAR HUMAN 50 UNIT/0.5 ML ML ONE (11:32)
[2019-03-12 11:42] LABS: Urine Blood NEGATIVE (NEG); Urine Glucose 2+ (NEG); Urine Protein NEGATIVE (NEG)
[2019-03-12] MEDS ORDERED: INSULIN GLARGINE 100 UNITS/ML SQ ONE (11:45)
[2019-03-12] MEDS ORDERED: PROMETHAZINE 25 MG/ML VIAL ONE (13:14)
[2019-03-12] MEDS: INSULIN -REGULAR HUMAN 50 UNIT/0.5 ML ML SQ SCH ×2 (16:30→21:00)
[2019-03-12] MEDS: ONDANSETRON 4 MG/2 ML VIAL IV PRN ×2 (16:33→21:41)
[2019-03-12 16:52] VITALS: BMI 25.1
--- NOTE | 2019-03-12 17:19 | EKG ---
Test Date: 2019-03-12 Test Time: 08:56:09 Cleat Blanker: MOHAMUD MEASUREMENT RESULTS: Intervals: Rate: 78 NM: 136 QRSD: 74 QT: 352 QTc: 401 [place]: P: 47 NM: 136 QRS: 69 T: 24 INTERPRETIVE STATEMENTS: Normal sinus rhythm normal ECG Compared to ECG 08/17/2016 22:08:17 Short NM interval no longer present Electronically Signed On 03-12-19 17:18:35 CDT by Oscar Sheridan
[2019-03-12] MEDS ORDERED: INFLUENZA VACCINE (for 3y+) 0.5 ML DOSE IMVAC ONE (18:00)
[2019-03-12] MEDS ORDERED: PNEUMOCOCCAL VACCINE 0.5 ML IMVAC ONE (18:00)
--- NOTE | 2019-03-12 18:48 | P.HP ---
Certification for Inpatient Patient admitted to: Observation Practitioner: I am a practitioner with admitting privileges, knowledge of patient current condition, hospital course, and medical plan of care. Services: Services provided to patient in accordance with Admission requirements found in Title 42 Section 412.3 of the Code of Federal Regulations Patient History Date of Service: 03/12/19 Reason for admission: Intractable nausea and vomiting History of Present Illness: This is a 43-year-old male with past medical history of epilepsy, diabetes NAD HD who presents to the emergency room for 2 days of vomiting. He states that he vomited was in the ER, it was nonbloody. He stated that he did have similar episode a few years ago and was diagnosed with otitis at that time. He reports abdominal pain that is generalized. Describes it as sharp and crampy. He has been also having fevers and chills along with this nausea and vomiting. Since it was getting worse on my presented to the emergency room. Exam in the ER, blood pressure is 157/100, heart rate of 89, respirations of 20, satting 99 % on room air and was afebrile in the emergency room. Labs were remarkable for WBC elevated at 15, blood sugars up to 331. Blood gases were okay, lactic acid was elevated to 3.1, which went down to 1.5 with IV fluids. His chest, abdomen , pelvis CT was negative for any acute abnormalities. His CT was negative for any acute abnormalities. He was noted to have right maxillary chronic sinusitis. Chest x-ray negative for any acute abnormalities. In the ER, he received normal saline, Rocephin, Zofran, Pepcid, Flagyl, fosphenytoin, morphine , and Phenergan. At the time of my exam, patient was alert and oriented, very sleepy, likely secondary to pain medications and he was hemodynamically stable. He did have a temperature of 101 at the time when I saw him. Allergies promethazine [From Phenergan] Allergy (Verified 03/12/19 15:59) Itching Home medications list reviewed: Yes Home Medications: Levetiracetam [Keppra] 1,000 mg PO BID 08/18/16 Phenytoin Sodium Extended [Dilantin] 200 mg PO BID 08/18/16 Dextroamphetamine/Amphetamine [Adderall 20 mg Tablet] 20 mg PO BIDWM 03/12/19 Hydrocodone Bit/Acetaminophen [Hydrocodon-Acetaminophn 10325] 1 tab PO QID PRN 03/12/19 - Past Medical/Surgical History Has patient received pneumonia vaccine in the past: No Diabetic: Yes -: Siezures -: Pancreatitis -: DM hasn't taken meds for > 1 yr -: epilipsy -: ADHD -: gastritis - Family History Father -: Diabetes - Social History Smoking Status: Never smoker Alcohol use: No CD- Drugs: No Caffeine use: Yes Place of Residence: Home Review of Systems 10-point ROS is otherwise unremarkable Physical Examination - Vital Signs Temperature: 101.1 F Blood Pressure: 136/78 Pulse: 90 Respirations: 20 Pulse Ox (%): 97 - Physical Exam General: Alert, In no apparent distress HEENT: Atraumatic, PERRLA, Mucous membr. moist/pink, EOMI, Sclerae nonicteric Neck: Supple, 2+ carotid pulse no bruit, No LAD, Without JVD or thyroid abnormality Respiratory: Clear to auscultation bilaterally, Normal air movement Cardiovascular: Regular rate/rhythm, Normal S1 S2 Gastrointestinal: Normal bowel sounds, No tenderness Musculoskeletal: No tenderness Integumentary: No rashes Neurological: Normal gait, Normal speech, Normal strength at 5/5 x4 extr, Normal tone, Normal affect Lymphatics: No axilla or inguinal lymphadenopathy - Studies Laboratory Data (last 24 hrs) 03/12/19 08:30: PT 12.6 H, INR 1.07, APTT 28.0 03/12/19 08:30: Magnesium 2.0 03/12/19 08:30: Creatinine 1.26 03/12/19 08:30: WBC 15.0 H, Hgb 17.8, Hct 50.1 H, Plt Count 232 03/12/19 08:30: Sodium 134 L, Potassium 4.2, BUN 18, Creatinine 1.24, Glucose 331 H, Total Bilirubin 0.9, AST 9 L, ALT 34, Alkaline Phosphatase 138 H, Lipase 77 Microbiology Data (last 24 hrs): 03/12/19 10:36 Nasopharnyx Influenza Type A Antigen Screen - Final 03/12/19 10:36 Nasopharnyx Influenza Type B Antigen Screen - Final Assessment and Plan - Problems (Diagnosis) (1) Abdominal pain Onset Date: 08/18/16 Current Visit: No Status: Acute Plan: Likely secondary to acute gastroenteritis, likely viral. -will cover with IV antibiotics at this time due to leukocytosis -provide supportive care with IV fluids -pain control -IV Zofran for nausea Qualifiers: Abdominal location: generalized Qualified Code(s): R10.84 - Generalized abdominal pain (2) Acute gastroenteritis Onset Date: 08/19/16 Current Visit: No Status: Acute (3) Diabetes mellitus type II, uncontrolled Onset Date: 08/19/16 Current Visit: No Status: Acute Plan: It seems that patient has not been taking his diabetes medications for about a year now. -will check A1c -Accu-Cheks and mild sliding scale insulin at this time. Qualifiers: Glycemic state: with hyperglycemia Qualified Code(s): E11.65 - Type 2 diabetes mellitus with hyperglycemia (4) Leukocytosis Onset Date: 08/18/16 Current Visit: No Status: Acute (5) Seizure disorder Onset Date: 08/19/16 Current Visit: No Status: Chronic Plan: Stable -restart home medications -phenytoin levels checked, normal - Plan DVT prophylaxis: Lovenox GI prophylaxis: Protonix Diet: Diabetic Disposition: Pending symptomatic improvement - Advance Directives Does patient have a Living Will: No Does patient have a Durable POA for Healthcare: No
[2019-03-12] MEDS: CIPROFLOXACIN 400mg IV 400 MG/200 ML BAG IV SCH (21:19)
[2019-03-12] MEDS: MORPHINE 2 MG/ML SYR IV PRN (21:20)
[2019-03-12] MEDS: PHENYTOIN ER 100 MG CAP PO SCH (21:22)
[2019-03-12] MEDS: levETIRAcetam 500 MG TAB PO SCH (21:22)
[2019-03-12] MEDS: NA CHLORIDE 0.9% 1,000 ML IV SCH (21:24)
[2019-03-13] MEDS: METRONIDAZOLE 500mg IVPB 500 MG/100 ML BAG IV SCH ×3 (00:48→17:13)
[2019-03-13] MEDS: MORPHINE 2 MG/ML SYR IV PRN ×3 (01:12→09:18)
[2019-03-13] MEDS: ONDANSETRON 4 MG/2 ML VIAL IV PRN ×4 (01:15→21:59)
[2019-03-13] MEDS: NA CHLORIDE 0.9% 1,000 ML IV SCH ×2 (02:08→11:09)
[2019-03-13 04:40] LABS: Absolute Lymphocytes (CBC) 1.2 K/uL (0.7-4.9); Basophils % 0.3 % (0-1.3); Hematocrit 42.3 % (39.6-49.0); Lymphocytes % 12.2 % (15.3-44.8); MPV 8.8 fL (7.6-11.3); RBC Red Blood Cell Count 4.73 M/uL (4.33-5.43)
[2019-03-13 04:50] LABS: ALT/SGPT 25 U/L (12-78); AST/SGOT 10 U/L (15-37); Albumin 3.4 g/dL (3.4-5.0); Alkaline Phosphatase 100 U/L (45-117); BUN Blood Urea Nitrogen 13 mg/dL (7-18); Bicarbonate 28 mmol/L (21-32); Bilirubin Total 0.7 mg/dL (0.2-1.0); Glucose Level 187 mg/dL (74-106); HDL Cholesterol 34 mg/dL (40-60); LDL Cholesterol, Calculated 43 (<130); Potassium 3.9 mmol/L (3.5-5.1); Protein, Total 6.5 g/dL (6.4-8.2); Sodium Level 136 mmol/L (136-145)
[2019-03-13] MEDS: PANTOPRAZOLE 40MG TABLET PO SCH (05:32)
[2019-03-13] MEDS: INSULIN -REGULAR HUMAN 50 UNIT/0.5 ML ML SQ SCH ×4 (07:30→21:00)
[2019-03-13] MEDS: levETIRAcetam 500 MG TAB PO SCH ×2 (09:16→21:55)
[2019-03-13] MEDS: ENOXAPARIN 40 MG/0.4 ML SQ SCH (09:16)
[2019-03-13] MEDS: PHENYTOIN ER 100 MG CAP PO SCH ×2 (09:16→21:54)
[2019-03-13] MEDS: CIPROFLOXACIN 400mg IV 400 MG/200 ML BAG IV SCH ×2 (11:04→21:57)
[2019-03-13] MEDS: HYDROCODONE/APAP 10/325 TAB PO PRN ×2 (15:09→21:55)
--- NOTE | 2019-03-13 15:37 | P.PN ---
Subjective Date of Service: 03/13/19 Chief Complaint: Intractable nausea and vomiting Subjective: No new changes Patient seen and examined at bedside. No family at bedside. Chart reviewed and case discussed with nursing staff. He seems to be sedated this morning Continues to complain of abdominal pain and nausea. Review of Systems 10-point ROS is otherwise unremarkable Physical Examination - Vital Signs Temperature: 99.3 F Blood Pressure: 163/90 Pulse: 84 Respirations: 16 Pulse Ox (%): 99 - Physical Exam General: Alert, In no apparent distress, Oriented x3, Other (Sedated, but arousable and answers questions appropriately) HEENT: Atraumatic, PERRLA, EOMI Neck: Supple, JVD not distended Respiratory: Clear to auscultation bilaterally, Normal air movement Cardiovascular: Regular rate/rhythm, Normal S1 S2 Gastrointestinal: Normal bowel sounds, No tenderness Musculoskeletal: No tenderness Integumentary: No rashes Neurological: Normal speech, Normal tone, Normal affect Lymphatics: No axilla or inguinal lymphadenopathy - Studies Laboratory Data (last 24 hrs) 03/13/19 03:39: Sodium 136, Potassium 3.9, BUN 13, Creatinine 0.81, Glucose 187 H, Total Bilirubin 0.7, AST 10 L, ALT 25, Alkaline Phosphatase 100, Triglycerides 209 H, Cholesterol 119, HDL Cholesterol 34 L, Cholesterol/HDL Ratio 3.50 03/13/19 03:39: WBC 10.1 D, Hgb 15.1 D, Hct 42.3 D, Plt Count 179 D Microbiology Data (last 24 hrs): 03/12/19 10:36 Nasopharnyx Influenza Type A Antigen Screen - Final 03/12/19 10:36 Nasopharnyx Influenza Type B Antigen Screen - Final Assessment And Plan - Current Problems (Diagnosis) (1) Abdominal pain Onset Date: 08/18/16 Current Visit: No Status: Acute Plan: Likely secondary to acute gastroenteritis, likely viral. -will cover with IV antibiotics at this time due to leukocytosis -provide supportive care with IV fluids -pain control -Dc IV pain medications due to over-sedation. Will continue home [place] at this time. -IV Zofran for nausea Qualifiers: Abdominal location: generalized Qualified Code(s): R10.84 - Generalized abdominal pain (2) Acute gastroenteritis Onset Date: 08/19/16 Current Visit: No Status: Acute (3) Diabetes mellitus type II, uncontrolled Onset Date: 08/19/16 Current Visit: No Status: Acute Plan: It seems that patient has not been taking his diabetes medications for about a year now. -will check A1c -Accu-Cheks and mild sliding scale insulin at this time. Qualifiers: Glycemic state: with hyperglycemia Qualified Code(s): E11.65 - Type 2 diabetes mellitus with hyperglycemia (4) Leukocytosis Onset Date: 08/18/16 Current Visit: No Status: Acute (5) Seizure disorder Onset Date: 08/19/16 Current Visit: No Status: Chronic Plan: Stable -restart home medications -phenytoin levels checked, normal - Plan DVT prophylaxis: Lovenox GI prophylaxis: Protonix Diet: Diabetic Disposition: Pending symptomatic improvement. Anticipate discharge home in the next 24-48 hr.
[2019-03-14] MEDS: NA CHLORIDE 0.9% 1,000 ML IV SCH ×3 (00:20→12:42)
[2019-03-14] MEDS: METRONIDAZOLE 500mg IVPB 500 MG/100 ML BAG IV SCH ×3 (00:21→16:20)
[2019-03-14] MEDS: ONDANSETRON 4 MG/2 ML VIAL IV PRN ×3 (03:50→13:37)
[2019-03-14 04:39] LABS: Absolute Lymphocytes (CBC) 1.3 K/uL (0.7-4.9); Basophils % 0.4 % (0-1.3); Hematocrit 40.7 % (39.6-49.0); MPV 8.6 fL (7.6-11.3); RBC Red Blood Cell Count 4.62 M/uL (4.33-5.43)
[2019-03-14 05:08] LABS: ALT/SGPT 23 U/L (12-78); AST/SGOT 13 U/L (15-37); Albumin 3.6 g/dL (3.4-5.0); Alkaline Phosphatase 85 U/L (45-117); BUN Blood Urea Nitrogen 13 mg/dL (7-18); Bicarbonate 29 mmol/L (21-32); Bilirubin Total 0.6 mg/dL (0.2-1.0); Glucose Level 178 mg/dL (74-106); Phosphorus 2.4 mg/dL (2.5-4.9); Potassium 3.4 mmol/L (3.5-5.1); Protein, Total 6.3 g/dL (6.4-8.2); Sodium Level 134 mmol/L (136-145)
[2019-03-14] MEDS: PANTOPRAZOLE 40MG TABLET PO SCH (06:04)
[2019-03-14] MEDS: CIPROFLOXACIN 400mg IV 400 MG/200 ML BAG IV SCH (08:34)
[2019-03-14] MEDS: INSULIN -REGULAR HUMAN 50 UNIT/0.5 ML ML SQ SCH ×3 (08:34→16:20)
[2019-03-14] MEDS: POTASS/SODIUM PHOSPHATE 1 PKT POWD.PACK PO SCH ×3 (08:35→11:16)
[2019-03-14] MEDS: ENOXAPARIN 40 MG/0.4 ML SQ SCH (08:36)
[2019-03-14] MEDS: PHENYTOIN ER 100 MG CAP PO SCH (08:37)
[2019-03-14] MEDS: levETIRAcetam 500 MG TAB PO SCH (08:37)
[2019-03-14] MEDS ORDERED: POTASSIUM 25 MEQ EFFERV TAB PO ONE (09:00)
--- NOTE | 2019-03-14 10:38 | P.PN ---
Subjective Date of Service: 03/14/19 Chief Complaint: Intractable nausea and vomiting Patient seen and examined at bedside. No family at bedside. Chart reviewed and case discussed with nursing staff. More awake and alert this am. Pain improved. Continues with nausea. Unable to eat and early satiety. Review of Systems 10-point ROS is otherwise unremarkable Physical Examination - Vital Signs Temperature: 99.0 F Blood Pressure: 154/86 Pulse: 76 Respirations: 18 Pulse Ox (%): 98 - Physical Exam General: Alert, In no apparent distress, Oriented x3 HEENT: Atraumatic, PERRLA, EOMI Neck: Supple, JVD not distended Respiratory: Clear to auscultation bilaterally, Normal air movement Cardiovascular: Regular rate/rhythm, Normal S1 S2 Gastrointestinal: Normal bowel sounds, Tenderness Musculoskeletal: No tenderness Integumentary: No rashes Neurological: Normal speech, Normal tone, Normal affect Lymphatics: No axilla or inguinal lymphadenopathy - Studies Microbiology Data (last 24 hrs): 03/12/19 08:41 Clean Catch Urine Xenia Count - Final 03/12/19 08:41 Clean Catch Urine - Final No growth. Assessment And Plan - Current Problems (Diagnosis) (1) Abdominal pain Onset Date: 08/18/16 Current Visit: No Status: Acute Plan: Likely secondary to acute gastroenteritis, likely viral vs gastroparesis? -will cover with IV antibiotics at this time due to leukocytosis -provide supportive care with IV fluids -pain control -Dc IV pain medications due to over-sedation. Will continue home [place] at this time. -IV Zofran for nausea -UGI series ordered to evaluate further Qualifiers: Abdominal location: generalized Qualified Code(s): R10.84 - Generalized abdominal pain (2) Acute gastroenteritis Onset Date: 08/19/16 Current Visit: No Status: Acute (3) Diabetes mellitus type II, uncontrolled Onset Date: 08/19/16 Current Visit: No Status: Acute Plan: It seems that patient has not been taking his diabetes medications for about a year now. -Accu-Cheks and mild sliding scale insulin at this time. Qualifiers: Glycemic state: with hyperglycemia Qualified Code(s): E11.65 - Type 2 diabetes mellitus with hyperglycemia (4) Leukocytosis Onset Date: 08/18/16 Current Visit: No Status: Resolved (5) Seizure disorder Onset Date: 08/19/16 Current Visit: No Status: Chronic Plan: Stable -restart home medications -phenytoin levels checked, normal - Plan DVT prophylaxis: Lovenox GI prophylaxis: Protonix Diet: Diabetic Disposition: Pending symptomatic improvement. Anticipate discharge home in the next 24-48 hr.
[2019-03-14] MEDS ORDERED: ONDANSETRON 4 MG/2 ML VIAL IV ONE (11:04)
[2019-03-14] MEDS ORDERED: MORPHINE 2 MG/ML SYR IV ONE (11:04)
[2019-03-14] MEDS: SUCRALFATE 1 GM TABLET PO SCH ×2 (12:42→16:19)
[2019-03-14 14:04] VITALS: O2SAT 97
--- NOTE | 2019-03-14 14:21 | RAD REPORT ---
EXAM DESCRIPTION: RAD - Upper GI Series Wo KUB - 03/14/2019 2:11 pm CLINICAL HISTORY: Intractable nausea/vomiting Abdominal pain COMPARISON: Abdomen Exam Limited dated 08/20/2016 FINDINGS: Examination was limited by the patient's nausea and vomiting. An esophagram was performed and shows normal bolus formation and normal initiation of swallowing. Primary peristalsis is normal w ith no intrinsic or extrinsic esophageal abnormalities. The stomach was largely decompressed. Total fluoroscopy time: 31 seconds Number of images acquired: 6 IMPRESSION: Unremarkable barium esophagram. The exam was mildly limited by the patient's nausea and vomiting during the study.
[2019-03-14] MEDS ORDERED: METOCLOPRAMIDE 10 MG/2mL INJ IV SCH (15:00)
--- NOTE | 2019-03-14 16:31 | P.DS ---
Admission Date: 03/13/19 Discharge Date: 03/14/19 Disposition: ROUTINE DISCHARGE Discharge Condition: GOOD Reason for Admission: Intractable nausea and vomiting - Problems (1) Abdominal pain Onset Date: 08/18/16 Current Visit: No Status: Acute Qualifiers: Abdominal location: generalized Qualified Code(s): R10.84 - Generalized abdominal pain (2) Acute gastroenteritis Onset Date: 08/19/16 Current Visit: No Status: Acute (3) Diabetes mellitus type II, uncontrolled Onset Date: 08/19/16 Current Visit: No Status: Acute Qualifiers: Glycemic state: with hyperglycemia Qualified Code(s): E11.65 - Type 2 diabetes mellitus with hyperglycemia (4) Leukocytosis Onset Date: 08/18/16 Current Visit: No Status: Resolved (5) Seizure disorder Onset Date: 08/19/16 Current Visit: No Status: Chronic Brief History of Present Illness: This is a 43-year-old male with past medical history of epilepsy, diabetes NAD HD who presents to the emergency room for 2 days of vomiting. He states that he vomited was in the ER, it was nonbloody. He stated that he did have similar episode a few years ago and was diagnosed with otitis at that time. He reports abdominal pain that is generalized. Describes it as sharp and crampy. He has been also having fevers and chills along with this nausea and vomiting. Since it was getting worse on my presented to the emergency room. Exam in the ER, blood pressure is 157/100, heart rate of 89, respirations of 20, satting 99 % on room air and was afebrile in the emergency room. Labs were remarkable for WBC elevated at 15, blood sugars up to 331. Blood gases were okay, lactic acid was elevated to 3.1, which went down to 1.5 with IV fluids. His chest, abdomen , pelvis CT was negative for any acute abnormalities. His CT was negative for any acute abnormalities. He was noted to have right maxillary chronic sinusitis. Chest x-ray negative for any acute abnormalities. In the ER, he received normal saline, Rocephin, Zofran, Pepcid, Flagyl, fosphenytoin, morphine , and Phenergan. At the time of my exam, patient was alert and oriented, very sleepy, likely secondary to pain medications and he was hemodynamically stable. He did have a temperature of 101 at the time when I saw him. Hospital Course: Patient was admitted for abdominal pain, intractable nausea vomiting. This was likely thought to be secondary to acute concern to ride his versus gastroparesis ?. He was started on IV antibiotics for leukocytosis. He was provided supportive care with IV fluids and IV pain medication. His medication was converted to oral pain medication due to over-sedation. He was also provided IV Zofran and nausea. Upper GI series is ordered, negative for any acute abnormalities. His symptoms did improve, prior to discharge, he was able to tolerate small amounts of the regular foods. His labs stabilized, his leukocytosis resolved. He was continued on his home medications, and did pretty well over the course of the stay. His diagnoses and treatment plan was explained to him, all questions were answered and he verbalized understanding. He was then discharged home in a safe and stable manner. He was instructed and recommended to follow up with Gastroenterology as an outpatient for further workup. Vital Signs/Physical Exam: Temp Pulse Resp BP Pulse Ox 99.3 F 83 16 137/78 98 03/14/19 12:00 03/14/19 12:00 03/14/19 12:00 03/14/19 12:00 03/14/19 12:00 General: Alert, In no apparent distress, Oriented x3 HEENT: Atraumatic, PERRLA, EOMI Neck: Supple, JVD not distended Respiratory: Clear to auscultation bilaterally, Normal air movement Cardiovascular: Regular rate/rhythm, Normal S1 S2 Gastrointestinal: Normal bowel sounds, No tenderness Musculoskeletal: No tenderness Integumentary: No rashes Neurological: Normal speech, Normal tone, Normal affect Lymphatics: No axilla or inguinal lymphadenopathy Laboratory Data at Discharge: WBC 7.1 K/uL (4.3-10.9) D 03/14/19 03:40 Hgb 14.8 g/dL (13.6-17.9) 03/14/19 03:40 Hct 40.7 % (39.6-49.0) 03/14/19 03:40 Plt Count 174 K/uL (152-406) 03/14/19 03:40 PT 12.6 SECONDS (9.5-12.5) H 03/12/19 08:30 INR 1.07 03/12/19 08:30 APTT 28.0 SECONDS (24.3-36.9) 03/12/19 08:30 Sodium 134 mmol/L (136-145) L 03/14/19 03:40 Potassium 3.4 mmol/L (3.5-5.1) L 03/14/19 03:40 BUN 13 mg/dL (7-18) 03/14/19 03:40 Creatinine 0.70 mg/dL (0.55-1.3) 03/14/19 03:40 Glucose 178 mg/dL (74-106) H 03/14/19 03:40 Phosphorus Cancelled 03/14/19 Unknown Magnesium 2.0 mg/dL (1.8-2.4) 03/14/19 03:40 Total Bilirubin 0.6 mg/dL (0.2-1.0) 03/14/19 03:40 AST 13 U/L (15-37) L 03/14/19 03:40 ALT 23 U/L (12-78) 03/14/19 03:40 Alkaline Phosphatase 85 U/L (45-117) 03/14/19 03:40 Triglycerides 209 mg/dL (<150) H 03/13/19 03:39 Cholesterol 119 mg/dL (<200) 03/13/19 03:39 HDL Cholesterol 34 mg/dL (40-60) L 03/13/19 03:39 Cholesterol/HDL Ratio 3.50 03/13/19 03:39 Lipase 77 U/L (73-393) 03/12/19 08:30 Home Medications: Levetiracetam [Keppra] 1,000 mg PO BID 08/18/16 Phenytoin Sodium Extended [Dilantin] 200 mg PO BID 08/18/16 Dextroamphetamine/Amphetamine [Adderall 20 mg Tablet] 20 mg PO BIDWM 03/12/19 Hydrocodone Bit/Acetaminophen [Hydrocodon-Acetaminophn 10-325] 1 tab PO QID PRN 03/12/19 Pantoprazole [Protonix Tab*] 40 mg PO DAILYAC #30 tab 03/14/19 Sucralfate [Carafate*] 1 gm PO QID #60 tab 03/14/19 New Medications: Pantoprazole [Protonix Tab*] 40 mg PO DAILYAC #30 tab Sucralfate [Carafate*] 1 gm PO QID #60 tab Patient Discharge Instructions: Please follow up with the primary care physician , especially in regards to diabetes medication. Please follow up with the embroidery assistant. Information has been provided to you. Return to the emergency room for worsening symptoms Diet: As tolerated Activity: Ad mabel Followup: Abhijeet Schmitt MD [ACTIVE - CAN ADMIT] - Matthew Michelle MD [ASSOCIATE-ACTIVE - CAN ADMIT] - Time spent managing pt's care (in minutes): 45
[2019-03-14 17:17] VITALS: BP 155/84; TEMP 99
== END 2019-03-14 17:18 | disposition home or self-care (01) | DRG 74 ==
LOC: ER 08:04 → ERHOLD 12:00 → 4TH 15:01 → OBSVTOIN 03-13 13:11
PROVIDERS: ADMIT Family Medicine; ATTEND Family Medicine
DX: E11.43 Type 2 diabetes mellitus with diabetic autonomic (poly)neuropathy (principal); A08.4 Viral intestinal infection, unspecified; K31.84 Gastroparesis; R10.84 Generalized abdominal pain; E11.65 Type 2 diabetes mellitus with hyperglycemia; D72.829 Elevated white blood cell count, unspecified; G40.909 Epilepsy, unspecified, not intractable, without status epilepticus
CPT/HCPCS: 36415; 70450; 71045; 71260; 74177; 74240; 80048; 80053; 80061; 80076; 80185; 80307; 80320; 80329; 81003; 82010; 82805; 82962; 83605; 83690; 83735; 83880; 84100; 84145; 84484; 85025; 85610; 85730; 87040; 87086; 87088; 87804; 93005; 94760; 96361; 96365; 96368; 96372; 96375; 99285; G0378; J0696; J0744; J1650; J1815; J2270; J2405; J2550; J2765; J7030; Q2009; Q9967

== ENCOUNTER 2019-12-13 13:27 | Observation (INO) | payer BC ==
[2019-12-13] MEDS ORDERED: NA CHLORIDE 0.9% 2,000 ML ONE (14:55)
[2019-12-13] MEDS ORDERED: ONDANSETRON 4 MG/2 ML VIAL ONE ×2 (14:55→22:09)
[2019-12-13 15:26] LABS: Absolute Lymphocytes (CBC) 1.5 K/uL (0.7-4.9); Basophils % 0.3 % (0-1.3); Hematocrit 50.5 % (39.6-49.0); Lymphocytes % 10.1 % (15.3-44.8); MPV 8.9 fL (7.6-11.3); RBC Red Blood Cell Count 5.58 M/uL (4.33-5.43)
[2019-12-13 15:32] LABS: ALT/SGPT 65 U/L (12-78); AST/SGOT 11 U/L (15-37); Albumin 4.2 g/dL (3.4-5.0); Alkaline Phosphatase 83 U/L (45-117); BUN Blood Urea Nitrogen 19 mg/dL (7-18); Bicarbonate 25 mmol/L (21-32); Bilirubin Direct 0.1 mg/dL (0-0.2); Bilirubin Total 0.7 mg/dL (0.2-1.0); Glucose Level 270 mg/dL (74-106); Lipase 220 U/L (73-393); Potassium 4.5 mmol/L (3.5-5.1); Protein, Total 7.6 g/dL (6.4-8.2); Sodium Level 137 mmol/L (136-145)
--- NOTE | 2019-12-13 18:21 | EDPHYS ---
Physician Documentation [facility] Name: Coreen Lau Jr Age: 44 yrs Sex: Male : 1975 Arrival Date: 12/13/2019 Time: 13:49 Bed 19 Private MD: ED Physician Joseph Billingsley HPI: 12/12 15:31 This 44 yrs old Male presents to ER via Ambulatory with complaints of Low kdr Back Pain, Nausea/Vomiting. 15:43 The patient presents to the emergency department with nausea, that is moderate, kdr vomiting, that is intermittent. Onset: The symptoms/episode began/occurred gradually, 2 day(s) ago. Possible causes: unknown. The symptoms are aggravated by nothing. The symptoms are alleviated by nothing. Associated signs and symptoms: Pertinent positives: Altered mental status - states that when he has n/v/d like this he seems to get dehydrated and then is altered. The last time, he had to be admitted for a few days until his sensorium cleared. Severity of symptoms: At their worst the symptoms were moderate severe incapacitating in the emergency department the symptoms are unchanged. The patient has experienced similar episodes in the past, a few times. The patient has not recently seen a physician. Historical: - Allergies: 14:01 No Known Allergies; ca1 - Home Meds: 14:01 Adderall XR Oral [Active]; Dilantin Oral [Active]; Januvia Oral [Active]; Keppra Oral ca1 [Active]; hydrocodone-acetaminophen 10-325 mg Oral tab [Active]; glimepiride 4 mg Oral tab 1 tab twice a day [Active]; - PMHx: 14:01 ADD/ADHD; Diabetes - NIDDM; epilepsy; Pancreatitis; Seizures; ca1 - PSHx: 14:01 None; ca1 - Immunization history:: Adult Immunizations up to date. - Social history:: Smoking status: Patient reports use of chewing tobacco. ROS: 15:43 Constitutional: Negative for fever, chills, and weight loss, Eyes: Negative for injury, kdr pain, redness, and discharge, Neck: Negative for injury, pain, and swelling, Cardiovascular: Negative for chest pain, palpitations, and edema, Respiratory: Negative for shortness of breath, cough, wheezing, and pleuritic chest pain, : Negative for injury, bleeding, discharge, and swelling, MS/Extremity: Negative for injury and deformity, Skin: Negative for injury, rash, and discoloration, Psych: Negative for depression, anxiety, suicide ideation, homicidal ideation, and hallucinations, Allergy/Immunology: Negative for hives, rash, and allergies, Endocrine: Negative for neck swelling, polydipsia, polyuria, polyphagia, and marked weight changes, Hematologic/Lymphatic: Negative for swollen nodes, abnormal bleeding, and unusual bruising. 15:43 Abdomen/GI: Positive for nausea and vomiting, Negative for abdominal pain, kdr constipation, abdominal cramps, abdominal distension, black/tarry stool, rectal pain. 15:43 Back: Positive for pain at rest, pain with movement, of the low back area. 15:43 Neuro: Positive for altered mental status, weakness. Exam: 15:43 Constitutional: This is a well developed, well nourished patient who is awake, alert, kdr and in no acute distress. Head/Face: Normocephalic, atraumatic. Eyes: Pupils equal round and reactive to light, extra-ocular motions intact. Lids and lashes normal. Conjunctiva and sclera are non-icteric and not injected. Cornea within normal limits. Periorbital areas with no swelling, redness, or edema. Neck: Trachea midline, no thyromegaly or masses palpated, and no cervical lymphadenopathy. Supple, full range of motion without nuchal rigidity, or vertebral point tenderness. No Meningismus. Chest/axilla: Normal chest wall appearance and motion. Nontender with no deformity. No lesions are appreciated. Cardiovascular: Regular rate and rhythm with a normal S1 and S2. No gallops, murmurs, or rubs. Normal PMI, no JVD. No pulse deficits. Respiratory: Lungs have equal breath sounds bilaterally, clear to auscultation and percussion. No rales, rhonchi or wheezes noted. No increased work of breathing, no retractions or nasal flaring. Abdomen/GI: Soft, non-tender, with normal bowel sounds. No distension or tympany. No guarding or rebound. No evidence of tenderness throughout. Back: No spinal tenderness. No costovertebral tenderness. Full range of motion. Skin: Warm, dry with normal turgor. Normal color with no rashes, no lesions, and no evidence of cellulitis. MS/ Extremity: Pulses equal, no cyanosis. Neurovascular intact. Full, normal range of motion. Psych: Awake, alert, with orientation to person, place and time. Behavior, mood, and affect are within normal limits. 15:43 Neuro: Orientation: appropriate for stated age, Mentation: slow to respond, Memory: unable to test, Cranial nerves: is grossly normal based on the patient's age, Motor: moves all fours. Vital Signs: 13:52 BP 125 / 91; Pulse 107; Resp 15 S; Temp 98.5(TE); Pulse Ox 98% on R/A; Weight 79.38 kg; ca1 Height 5 ft. 9 in. (175.26 cm) (R); 14:57 BP 150 / 94; Pulse 85; Resp 16; ll1 16:00 BP 151 / 71; Pulse 70; Resp 16; Pulse Ox 100% ; ll1 17:30 BP 130 / 68; Pulse 80; Resp 17; Pulse Ox 100% ; ll1 18:30 BP 150 / 87; Pulse 73; Resp 18; Pulse Ox 100% ; ll1 19:24 BP 155 / 89; Pulse 84; Resp 17; Pulse Ox 99% ; ll1 20:30 BP 141 / 87; Pulse 75; Resp 17; Pulse Ox 98% ; ll1 21:23 BP 162 / 88; Pulse 72; Resp 17; Pulse Ox 98% ; ll1 22:08 BP 164 / 69; Pulse 79; Resp 18; Temp 97.9(TE); Pulse Ox 98% ; ll1 22:47 BP 164 / 69; Pulse 82; Resp 17; Pulse Ox 97% ; ll1 13:52 Body Mass Index 25.84 (79.38 kg, 175.26 cm) ca1 MDM: 18:21 Patient medically screened. kdr 18:21 Data reviewed: vital signs, nurses notes, lab test result(s), radiologic studies. kdr Counseling: I had a detailed discussion with the patient and/or guardian regarding: the historical points, exam findings, and any diagnostic results supporting the discharge/admit diagnosis, lab results, radiology results, the need for further work-up and treatment in the hospital. 12/12 14:14 Order name: Glucose, Ancillary Testing; Complete Time: 15:31 EDMS 12/12 14:35 Order name: Basic Metabolic Panel kdr 12/12 14:35 Order name: CBC with Diff kdr 12/12 14:35 Order name: Hepatic Function kdr 12/12 14:35 Order name: Lipase kdr 12/12 14:35 Order name: UDS kdr 12/12 14:50 Order name: Dilantin kdr 12/12 15:33 Order name: Basic Metabolic Panel; Complete Time: 16:01 EDMS 12/12 15:33 Order name: Liver (Hepatic) Function; Complete Time: 16:01 EDMS 12/12 15:33 Order name: Lipase; Complete Time: 16:01 EDMS 12/12 15:33 Order name: CBC with Automated Diff; Complete Time: 16:01 EDMS 12/12 16:00 Order name: Phenytoin (Dilantin) Level; Complete Time: 16:01 EDMS 12/12 18:20 Order name: COVID-19 kdr 12/12 18:29 Order name: Urine Dipstick-Ancillary; Complete Time: 18:58 EDMS 12/12 14:35 Order name: IV Saline Lock; Complete Time: 14:44 kdr 12/12 14:35 Order name: Labs collected and sent; Complete Time: 14:44 kdr 12/12 18:21 Order name: CT Head Brain wo Cont kdr 12/12 18:58 Order name: Urine Drug Screen EDMS 12/12 22:45 Order name: CORONAVIRUS EDMS Administered Medications: 14:56 Drug: Zofran (Ondansetron) 4 mg Route: IVP; Site: right femoral; ll1 16:15 Follow up: Response: No adverse reaction; Nausea is decreased; RASS: Drowsy (-1) ll1 14:57 Drug: NS 0.9% (30 ml/kg) 30 ml/kg Route: IV; Rate: bolus; Site: right forearm; ll1 17:10 Follow up: Response: No adverse reaction; RASS: Drowsy (-1); IV Status: Completed ll1 infusion; IV Intake: 2000ml 22:06 Drug: Zofran (Ondansetron) 4 mg Route: IVP; Site: right antecubital; ll1 22:48 Follow up: Response: No adverse reaction; RASS: Alert and Calm (0) ll1 Point of Care Testing: Blood Glucose: 14:01 Blood Glucose: 292 mg/dL; ca1 Ranges: Critical Glucose Levels:Adult <50 mg/dl or >400 mg/dl <40 mg/dl or >180 mg/dl Disposition: 12/13/19 18:21 Hospitalization ordered by Shon Villarreal for Observation. Preliminary diagnosis are Altered mental status, unspecified, Nausea and vomiting, Epilepsy and recurrent seizures. - Bed requested for Telemetry/MedSurg (observation). - Status is Observation. ll1 - Condition is Fair. - Problem is new. - Symptoms have improved. Signatures: Dispatcher [employer] EDMS Joseph Billingsley MD MD kdr Attema, N[place], RADIOLOGY CT TECHNOLOGIST-C RADIOLOGY CT TECHNOLOGIST-Cla1 Miladis Sagastume, PRETTY RN cg Shasha Fajardo RN RN ca1 Guerline Waite RN RN ll1 Corrections: (The following items were deleted from the chart) 16:00 15:43 Constitutional: Negative for fever, chills, and weight loss, Eyes: Negative for kdr injury, pain, redness, and discharge, Neck: Negative for injury, pain, and swelling, Cardiovascular: Negative for chest pain, palpitations, and edema, Respiratory: Negative for shortness of breath, cough, wheezing, and pleuritic chest pain, Abdomen/GI: Negative for abdominal pain, nausea, vomiting, diarrhea, and constipation, : Negative for injury, bleeding, discharge, and swelling, MS/Extremity: Negative for injury and deformity, Skin: Negative for injury, rash, and discoloration, Neuro: Negative for headache, weakness, numbness, tingling, and seizure activity. kdr 21:43 18:21 Hospitalization Ordered by Shon Villarreal DO for Observation. Preliminary cg diagnosis is Altered mental status, unspecified; Nausea and vomiting; Epilepsy and recurrent seizures. Bed requested for Telemetry/MedSurg (observation). Status is Observation. Condition is Fair. Problem is new. Symptoms have improved. kdr 22:48 21:43 12/13/2019 18:21 Hospitalization Ordered by Shon Villarreal DO for Observation. ll1 Preliminary diagnosis is Altered mental status, unspecified; Nausea and vomiting; Epilepsy and recurrent seizures. Bed requested for Telemetry/MedSurg (observation). Status is Observation. Condition is Fair. Problem is new. Symptoms have improved. cg
--- NOTE | 2019-12-13 18:21 | ER ---
Nurse's Notes [facility] Name: Coreen Lau Jr Age: 44 yrs Sex: Male : 1975 Arrival Date: 12/13/2019 Time: 13:49 Bed 19 Private MD: Diagnosis: Altered mental status, unspecified;Nausea and vomiting;Epilepsy and recurrent seizures Presentation: 12/12 13:52 Chief complaint: Spouse and/or significant other states: About a week and half, hurt ca1 his back took him the the doctor, they did MRI pending results. They put him on steroids, muscle relaxants and anti-inflammatories. 2 days ago, started vomiting, diarrhea, loss of appetite. He might be dehydrated. And since last night he has been out of it. Last time he was here for N/diarrhea and was admitted for days. He also has seizures and takes Dilantin and Keppra. Oriented to person. Pt appears confused and drowsy. Coronavirus screen: Proceed with normal triage. Patient denies a cough. Patient denies shortness of breath or difficulty breathing. Patient denies measured and/or subjective temperature greater than 100.4F prior to today's visit. Patient denies travel on a cruise ship or to a country the [facility] currently lists as an affected area. Patient denies contact with known and/or suspected case of COVID-19. Ebola Screen: Patient negative for fever greater than or equal to 101.5 degrees Fahrenheit, and additional compatible Ebola Virus Disease symptoms Patient denies exposure to infectious person. Patient denies travel to an Ebola-affected area in the 21 days before illness onset. No symptoms or risks identified at this time. Initial Sepsis Screen: Does the patient meet any 2 criteria? No. Patient's initial sepsis screen is negative. Does the patient have a suspected source of infection? No. Patient's initial sepsis screen is negative. Risk Assessment: Do you want to hurt yourself or someone else? Patient reports no desire to harm self or others. Onset of symptoms was December 13, 2019. 13:52 Method Of Arrival: Ambulatory ca1 13:52 Acuity: SHAILA 2 ca1 Historical: - Allergies: 14:01 No Known Allergies; ca1 - Home Meds: 14:01 Adderall XR Oral [Active]; Dilantin Oral [Active]; Januvia Oral [Active]; Keppra Oral ca1 [Active]; hydrocodone-acetaminophen 10-325 mg Oral tab [Active]; glimepiride 4 mg Oral tab 1 tab twice a day [Active]; - PMHx: 14:01 ADD/ADHD; Diabetes - NIDDM; epilepsy; Pancreatitis; Seizures; ca1 - PSHx: 14:01 None; ca1 - Immunization history:: Adult Immunizations up to date. - Social history:: Smoking status: Patient reports use of chewing tobacco. Screenin:59 Abuse screen: Denies threats or abuse. Nutritional screening: No deficits noted. ll1 Tuberculosis screening: No symptoms or risk factors identified. Fall Risk None identified. Secondary diagnosis (15 points) seizures, IV access (20 points). Ambulatory Aid- None/Bed Rest/Nurse Assist (0 pts). Gait- Weak (10 pts.). Total Marcos Fall Scale indicates High Risk Score (45 or more points). Fall prevention measures have been instituted. Side Rails Up X 2 Placed Close to Nursing Station Frequent Obs/Assessments Occuring Family Present and informed to notify staff if the need to leave the bedside As available patient and family educated on Fall Prevention Program and Strategies. Assessment: 14:58 General: Appears ill, Behavior is calm, cooperative. Pain: Complains of pain in back ll1 Quality of pain is described as aching. Neuro: No deficits noted. Neuro: Level of Consciousness is awake, confused, Oriented to person, Agronomy Location Manager are equal bilaterally Moves all extremities. Full function Gait is steady, Speech is normal, Facial symmetry appears normal, Pupils are PERRLA, reports confusion at times since last night. . Reports weakness. Cardiovascular: No deficits noted. Respiratory: No deficits noted. GI: Abdomen is flat, Bowel sounds present X 4 quads. Abd is soft and non tender X 4 quads. Reports diarrhea, nausea, vomiting. : No deficits noted. 16:00 Reassessment: No changes from previously documented assessment. Patient and/or family ll1 updated on plan of care and expected duration. Pain level reassessed. Patient is alert, oriented x 3, equal unlabored respirations, skin warm/dry/pink. still confused. 17:00 Reassessment: No changes from previously documented assessment. Patient and/or family ll1 updated on plan of care and expected duration. Pain level reassessed. Patient is alert, oriented x 3, equal unlabored respirations, skin warm/dry/pink. 18:00 Reassessment: No changes from previously documented assessment. Patient and/or family ll1 updated on plan of care and expected duration. Pain level reassessed. Patient is alert, oriented x 3, equal unlabored respirations, skin warm/dry/pink. 18:35 Reassessment: No changes from previously documented assessment. Patient and/or family ll1 updated on plan of care and expected duration. Pain level reassessed. Patient is alert, oriented x 3, equal unlabored respirations, skin warm/dry/pink. Dr. Billingsley at bedside. To be admitted. 19:26 Reassessment: No changes from previously documented assessment. Patient and/or family ll1 updated on plan of care and expected duration. Pain level reassessed. Patient is alert, oriented x 3, equal unlabored respirations, skin warm/dry/pink. 20:30 Reassessment: No changes from previously documented assessment. Patient and/or family ll1 updated on plan of care and expected duration. Pain level reassessed. Patient is alert, oriented x 3, equal unlabored respirations, skin warm/dry/pink. 21:21 Reassessment: No changes from previously documented assessment. Patient and/or family ll1 updated on plan of care and expected duration. Pain level reassessed. Patient is alert, oriented x 3, equal unlabored respirations, skin warm/dry/pink. 22:20 Reassessment: No changes from previously documented assessment. Patient and/or family ll1 updated on plan of care and expected duration. Pain level reassessed. Patient is alert, oriented x 3, equal unlabored respirations, skin warm/dry/pink. 22:40 Reassessment: No changes from previously documented assessment. Patient and/or family ll1 updated on plan of care and expected duration. Pain level reassessed. Patient is alert, oriented x 3, equal unlabored respirations, skin warm/dry/pink. Vital Signs: 13:52 BP 125 / 91; Pulse 107; Resp 15 S; Temp 98.5(TE); Pulse Ox 98% on R/A; Weight 79.38 kg; ca1 Height 5 ft. 9 in. (175.26 cm) (R); 14:57 BP 150 / 94; Pulse 85; Resp 16; ll1 16:00 BP 151 / 71; Pulse 70; Resp 16; Pulse Ox 100% ; ll1 17:30 BP 130 / 68; Pulse 80; Resp 17; Pulse Ox 100% ; ll1 18:30 BP 150 / 87; Pulse 73; Resp 18; Pulse Ox 100% ; ll1 19:24 BP 155 / 89; Pulse 84; Resp 17; Pulse Ox 99% ; ll1 20:30 BP 141 / 87; Pulse 75; Resp 17; Pulse Ox 98% ; ll1 21:23 BP 162 / 88; Pulse 72; Resp 17; Pulse Ox 98% ; ll1 22:08 BP 164 / 69; Pulse 79; Resp 18; Temp 97.9(TE); Pulse Ox 98% ; ll1 22:47 BP 164 / 69; Pulse 82; Resp 17; Pulse Ox 97% ; ll1 13:52 Body Mass Index 25.84 (79.38 kg, 175.26 cm) ca1 ED Course: 13:49 Patient arrived in ED. fj1 13:59 Triage completed. ca1 14:01 Arm band placed on right wrist. ca1 14:15 Guerline Waite RN is Primary Nurse. ll1 14:34 Joseph Billingsley MD is Attending Physician. kdr 14:50 Inserted saline lock: 20 gauge in right forearm, using aseptic technique. Blood ll1 collected. 15:00 Patient has correct armband on for positive identification. Bed in low position. Call ll1 light in reach. Side rails up X2. Seizure precautions initiated. Pulse ox on. NIBP on. 18:20 Shon Villarreal DO is Hospitalizing Provider. kdr 22:26 No provider procedures requiring assistance completed. Patient admitted, IV remains in ll1 place. Administered Medications: 14:56 Drug: Zofran (Ondansetron) 4 mg Route: IVP; Site: right femoral; ll1 16:15 Follow up: Response: No adverse reaction; Nausea is decreased; RASS: Drowsy (-1) ll1 14:57 Drug: NS 0.9% (30 ml/kg) 30 ml/kg Route: IV; Rate: bolus; Site: right forearm; ll1 17:10 Follow up: Response: No adverse reaction; RASS: Drowsy (-1); IV Status: Completed ll1 infusion; IV Intake: 2000ml 22:06 Drug: Zofran (Ondansetron) 4 mg Route: IVP; Site: right antecubital; ll1 22:48 Follow up: Response: No adverse reaction; RASS: Alert and Calm (0) ll1 Point of Care Testing: Blood Glucose: 14:01 Blood Glucose: 292 mg/dL; ca1 Ranges: Intake: 17:10 IV: 2000ml; Total: 2000ml. ll1 Outcome: 18:21 Decision to Hospitalize by Provider. kdr 22:26 Admitted to Med/surg accompanied by tech, room 216, Report called to Yamilet Mcadams on ll1 2nd. 22:26 Condition: stable 22:26 Instructed on the need for admit. 22:48 Patient left the ED. ll1 Addendum: 12/16/2019 20:54 Addendum: COVID-19 Result: Other pt reports that she has not yet received pt COVID s g 19 result, informed that when the result comes back that a Provider would be in contact with the pt, pt stated understanding. Signatures: Easton Ervin RN RN Joseph Billingsley MD MD [facility] Shasha Fajardo RN RN ca1 Jose Daniel, [facility] Guerline Waite RN RN 1 Corrections: (The following items were deleted from the chart) 12/12 20:55 14:58 Neuro: Level of Consciousness is awake, alert, obeys commands, Oriented to ll1 person, place, time, situation, Appropriate for age Agronomy Location Manager are equal bilaterally Moves all extremities. Full function Gait is steady, Speech is normal, Facial symmetry appears normal, Pupils are PERRLA, reports confusion at times since last night. . Reports weakness ll1
[2019-12-13 18:29] LABS: Urine Blood TRACE (NEG); Urine Glucose 2+ (NEG); Urine Protein NEGATIVE (NEG); Urine Specific Gravity 1.025 (1.005-1.030); Urine pH 5.5 (5.0-7.0)
[2019-12-13 18:58] LABS: Barbiturates NEGATIVE (NEGATIVE); Benzodiazepines NEGATIVE (NEGATIVE); Cocaine NEGATIVE (NEGATIVE); METHAMPHETAM NEGATIVE (NEGATIVE); Methadone NEGATIVE (NEGATIVE); Opiates NEGATIVE (NEGATIVE); Phencyclidine NEGATIVE (NEGATIVE); THC Cannibis NEGATIVE (NEGATIVE)
--- NOTE | 2019-12-13 20:51 | P.HP ---
Certification for Inpatient Patient admitted to: Observation With expected LOS: <2 Midnights Practitioner: I am a practitioner with admitting privileges, knowledge of patient current condition, hospital course, and medical plan of care. Services: Services provided to patient in accordance with Admission requirements found in Title 42 Section 412.3 of the Code of Federal Regulations Patient History Date of Service: 12/13/19 Reason for admission: Altered mental status History of Present Illness: 44-year-old gentleman with a history of seizure disorder, attention deficit disorder was brought to the emergency department due to altered mental status. According to the spouse patient has been experiencing bouts of nausea and vomiting and diarrhea of about 3 days duration. Patient could not hold his antiseizure medications due to the vomiting. Spouse denies any seizure activity. His blood work in the ED shows mild leukocytosis. Phenytoin level was below normal limit and blood glucose elevated. UA is positive for ketones. Patient was more awake during my examination in the ED and was responding appropriately to questions, though mostly mute. Patient is placed under observation for further management. Allergies promethazine [From Phenergan] Allergy (Verified 03/12/19 15:59) Itching Home Medications: Levetiracetam [Keppra] 1,000 mg PO BID 08/18/16 Phenytoin Sodium Extended [Dilantin] 200 mg PO BID 08/18/16 Dextroamphetamine/Amphetamine [Adderall 20 mg Tablet] 20 mg PO BIDWM 03/12/19 Hydrocodone Bit/Acetaminophen [Hydrocodon-Acetaminophn 10-325] 1 tab PO QID PRN 03/12/19 Pantoprazole [Protonix Tab*] 40 mg PO DAILYAC #30 tab 03/14/19 Sucralfate [Carafate*] 1 gm PO QID #60 tab 03/14/19 - Past Medical/Surgical History Diabetic: Yes -: Seizures -: Pancreatitis -: DM hasn't taken meds for > 1 yr -: epilipsy -: ADHD -: gastritis - Family History Father -: Diabetes - Social History Alcohol use: No CD- Drugs: No Caffeine use: Yes Review of Systems Other: Except as documented, all other systems reviewed and negative. Physical Examination - Physical Exam General: In no apparent distress, Other (Awake) HEENT: Mucous membr. moist/pink, Sclerae nonicteric Neck: Supple, JVD not distended Respiratory: Clear to auscultation bilaterally, Normal air movement Cardiovascular: No edema, Regular rate/rhythm, Normal S1 S2 Capillary refill: <2 Seconds Gastrointestinal: Normal bowel sounds, Soft and benign, No tenderness Musculoskeletal: No swelling, No erythema Integumentary: No rashes Neurological: Normal strength at 5/5 x4 extr, Cranial nerves 3-12 intact - Studies Laboratory Data (last 24 hrs) 12/13/19 14:40: WBC 14.9 H, Hgb 17.2, Hct 50.5 H, Plt Count 289 12/13/19 14:40: Sodium 137, Potassium 4.5, BUN 19 H, Creatinine 0.80, Glucose 270 H, Total Bilirubin 0.7, AST 11 L, ALT 65, Alkaline Phosphatase 83, Lipase 220 Assessment and Plan - Problems (Diagnosis) (1) Altered mental status Current Visit: Yes Status: Acute (2) Metabolic encephalopathy Current Visit: Yes Status: Acute (3) Acute gastroenteritis Onset Date: 08/19/16 Current Visit: No Status: Acute (4) Diabetes mellitus type II, uncontrolled Onset Date: 08/19/16 Current Visit: No Status: Acute Qualifiers: Glycemic state: with hyperglycemia Qualified Code(s): E11.65 - Type 2 diabetes mellitus with hyperglycemia (5) Seizure disorder Onset Date: 08/19/16 Current Visit: No Status: Chronic - Plan The cause of altered mental status is unclear. I suspect this is secondary to nonconvulsive seizures. Spouse also suspect patient is dehydrated. Place patient under observation. Supportive measures with IV hydration Resume home antiepileptics. Neurochecks. Screen for COVID given the possibility of viral gastroenteritis. - Advance Directives Does patient have a Living Will: No Does patient have a Durable POA for Healthcare: No
[2019-12-13] MEDS ORDERED: ACETAMINOPHEN 500 MG TAB PO PRN (22:44)
[2019-12-13] MEDS: INSULIN -REGULAR HUMAN 50 UNIT/0.5 ML ML SQ SCH (23:41)
[2019-12-13] MEDS: NA CHLORIDE 0.9% 1,000 ML IV SCH (23:41)
[2019-12-14 03:48] VITALS: BMI 25.8
[2019-12-14] MEDS ORDERED: PHENYTOIN NA 100 MG/2 ML IV ONE (04:06)
[2019-12-14] MEDS ORDERED: levETIRAcetam 1,000 MG in NA CHLORIDE 0.9% 100 ML IV ONE (04:06)
[2019-12-14] MEDS ORDERED: PHENYTOIN NA 100 MG/2 ML ONE (04:41)
[2019-12-14] MEDS: ONDANSETRON 4 MG/2 ML VIAL IV PRN ×2 (04:42→12:19)
[2019-12-14] MEDS ORDERED: LEVETIRACETAM 500 MG/5 ML VIAL IV ONE (04:42)
[2019-12-14] MEDS ORDERED: NA CHLORIDE 0.9% 100 ML ONE (04:46)
[2019-12-14 06:25] LABS: Absolute Lymphocytes (CBC) 1.5 K/uL (0.7-4.9); Basophils % 0.3 % (0-1.3); Hematocrit 45.2 % (39.6-49.0); Lymphocytes % 14.2 % (15.3-44.8); MPV 8.9 fL (7.6-11.3); RBC Red Blood Cell Count 4.96 M/uL (4.33-5.43)
[2019-12-14 06:47] LABS: BUN Blood Urea Nitrogen 13 mg/dL (7-18); Bicarbonate 26 mmol/L (21-32); Glucose Level 188 mg/dL (74-106); Magnesium 2.2 mg/dL (1.8-2.4); Phosphorus 2.6 mg/dL (2.5-4.9); Potassium 3.9 mmol/L (3.5-5.1); Sodium Level 140 mmol/L (136-145)
[2019-12-14] MEDS: INSULIN -REGULAR HUMAN 50 UNIT/0.5 ML ML SQ SCH ×3 (07:30→16:22)
[2019-12-14] MEDS: NA CHLORIDE 0.9% 1,000 ML IV SCH ×3 (08:44→16:22)
[2019-12-14] MEDS ORDERED: levETIRAcetam 500 MG TAB PO SCH ×2 (09:00→16:00)
[2019-12-14] MEDS ORDERED: ENOXAPARIN 40 MG/0.4 ML SQ SCH (09:00)
[2019-12-14] MEDS ORDERED: PHENYTOIN ER 100 MG CAP PO SCH ×2 (09:00→16:00)
[2019-12-14 10:32] VITALS: O2SAT 98
[2019-12-14] MEDS ORDERED: HYDROCODONE/APAP 10/325 TAB PO PRN (11:40)
--- NOTE | 2019-12-14 15:32 | P.DS ---
Admission Date: 12/13/19 Discharge Date: 12/14/19 Primary Care Provider: Vincent; Neurology-Dr. Carlos Disposition: ROUTINE DISCHARGE Discharge Condition: GOOD Reason for Admission: Altered mental status Consultations: Neurology-Dr. Marie Procedures: CT scan: No acute finding Medical Problem List: Metabolic encephalopathy likely related to viral gastroenteritis Seizure disorder DM Type 2 Chronic pain Brief History of Present Illness: 44-year-old male presented to the emergency room with nausea, vomiting and diarrhea. Patient was admitted for further evaluation. Patient had not taking his anti seizure medication. Patient was very lethargic. Hospital Course: Patient presented with nausea, vomiting and diarrhea likely related to viral gastroenteritis. Patient responded well to IV fluids. Patient has improved. Patient able tolerate his diet. At discharge patient will continue with a diabetic diet. Patient with seizure disorder. Patient takes Keppra and Dilantin. Patient had not been able to take his medication recently due to the nausea and vomiting. IV medication was given. Case discussed with Neurology. At discharge he will continue with his current medication of Keppra 1000 mg 1 pill twice daily and Dilantin 200 mg 1 pill twice daily. Recommend a follow up with his neurologist within 1-2 weeks to further monitor and address. Patient with GERD. At discharge he will continue with his current medication. Patient with chronic pain. At discharge he will continue with his medication. Patient with diabetes mellitus type 2. Recommend to check A1c with his PCP. Recommend ADA diet. Is reported that the patient has not taking his medications in quite some time. Recommend to continue his medication. Recommend to maintain blood sugar less 140 fasting less to after meals. Further adjustment can be done by his PCP. Vital Signs/Physical Exam: Temp Pulse Resp BP Pulse Ox 98.8 F 68 18 134/69 98 12/14/19 12:00 12/14/19 12:00 12/14/19 12:00 12/14/19 12:00 12/14/19 12:00 General: Alert, In no apparent distress, Oriented x3, Cooperative HEENT: Atraumatic Neck: Supple Respiratory: Clear to auscultation bilaterally, Normal air movement Cardiovascular: Normal pulses, Regular rate/rhythm Gastrointestinal: Normal bowel sounds, No ascites, No tenderness, No masses, No rebound, No guarding Neurological: Normal speech, Normal strength at 5/5 x4 extr, Normal tone, Normal affect Laboratory Data at Discharge: WBC 10.6 K/uL (4.3-10.9) D 12/14/19 05:24 Hgb 15.9 g/dL (13.6-17.9) 12/14/19 05:24 Hct 45.2 % (39.6-49.0) 12/14/19 05:24 Plt Count 233 K/uL (152-406) 12/14/19 05:24 Sodium 140 mmol/L (136-145) 12/14/19 05:24 Potassium 3.9 mmol/L (3.5-5.1) 12/14/19 05:24 BUN 13 mg/dL (7-18) 12/14/19 05:24 Creatinine 0.67 mg/dL (0.55-1.3) 12/14/19 05:24 Glucose 188 mg/dL (74-106) H 12/14/19 05:24 Phosphorus 2.6 mg/dL (2.5-4.9) 12/14/19 05:24 Magnesium 2.2 mg/dL (1.8-2.4) 12/14/19 05:24 Total Bilirubin 0.7 mg/dL (0.2-1.0) 12/13/19 14:40 AST 11 U/L (15-37) L 12/13/19 14:40 ALT 65 U/L (12-78) 12/13/19 14:40 Alkaline Phosphatase 83 U/L (45-117) 12/13/19 14:40 Lipase 220 U/L (73-393) 12/13/19 14:40 Home Medications: RX: Levetiracetam [Keppra] 1,000 mg PO BID 08/18/16 RX: Phenytoin Sodium Extended [Dilantin] 200 mg PO BID 08/18/16 RX: Dextroamphetamine/Amphetamine [Adderall 20 mg Tablet] 20 mg PO BIDWM 03/12/19 RX: Hydrocodone Bit/Acetaminophen [Hydrocodon-Acetaminophn 10-325] 1 tab PO QID PRN 03/12/19 RX: Glimepiride [Amaryl] 4 mg PO BID 12/14/19 RX: Methocarbamol [Robaxin-750] 750 mg PO TIDP PRN 12/14/19 Patient Discharge Instructions: 1. Follow up with his PCP to follow up this hospitalization. 2. Patient presented with nausea, vomiting and diarrhea likely related to viral gastroenteritis. Patient responded well to IV fluids. Patient has improved. Patient able tolerate his diet. At discharge patient will continue with a diabetic diet. 3. Patient with seizure disorder. Patient takes Keppra and Dilantin. Patient had not been able to take his medication recently due to the nausea and vomiting. IV medication was given. Case discussed with Neurology. At discharge he will continue with his current medication of Keppra 1000 mg 1 pill twice daily and Dilantin 200 mg 1 pill twice daily. Recommend a follow up with his neurologist within 1-2 weeks to further monitor and address. 4. Patient with GERD. At discharge he will continue with his current medication. 5. Patient with chronic pain. At discharge he will continue with his medication. 6. Patient with diabetes mellitus type 2. Recommend to check A1c with his PCP. Recommend ADA diet. Is reported that the patient has not taking his medications in quite some time. Recommend to continue his medication. Recommend to maintain blood sugar less 140 fasting less to after meals. Further adjustment can be done by his PCP. Diet: ADA Activity: Ad mabel Time spent managing pt's care (in minutes): 55
[2019-12-14] MEDS ORDERED: levETIRAcetam 1,000 MG in NA CHLORIDE 0.9% 100 ML IV SCH ×2 (16:00→21:00)
[2019-12-14] MEDS ORDERED: PHENYTOIN NA 100 MG/2 ML IV SCH ×2 (16:00→21:00)
[2019-12-14 17:04] VITALS: BP 129/75; TEMP 99.2
--- NOTE | 2019-12-14 19:33 | RAD REPORT ---
EXAM DESCRIPTION: CT Head Without Intravenous Contrast CLINICAL HISTORY: The patient is 44 years old and is Male; CONFUSED TECHNIQUE: Axial computed tomography images of the head/brain without intravenous contrast. Sagitt al and coronal reformatted images were created and reviewed. This CT exam was performed using one o r more of the following dose reduction techniques: automated exposure control, adjustment of the mA and/or kV according to patient size, and/or use of iterative reconstruction technique. COMPARISON: March 12, 2019 FINDINGS: Brain: Unremarkable. No hemorrhage. No significant white matter disease. No edema. Ventricles: Unremarkable. No ventriculomegaly. Bones/joints: Unremarkable. No acute fracture. Soft tissues: Unremarkable. Sinuses: Opacification right maxillary sinus Mastoid air cells: Unremarkable as visualized. No mastoid effusion. IMPRESSION: 1. No acute intracranial findings. 2. Paranasal sinus disease. Electronically signed by: Ruben Rizzo MD 12/13/2019 10:05 PM CDT Due to temporary technical issues with the PACS/Fluency reporting system, reports are being signed by the in house radiologist without review as a courtesy to ensure prompt reporting. The interpreting r adiologist is fully responsible for the content of the report.
--- NOTE | 2019-12-14 23:37 | CON ---
Reason For Consultation: Consultation called because of altered mental status. History Of Present Illness: Mr. Lau is a 44-year-old right-handed patient with a long his tory of epilepsy and attention deficit disorder, who was brought in to [facility] because of altered mental status. The patient's is at bedside. She reports he was less responsive, stare d, did not appear to interact with her and this occurred after about 3 days of nausea with vomiting w here he could not hold his antiepileptic medications down. He usually takes Keppra 1000 mg twice a d ay and Dilantin 200 mg twice daily along with [place] for pain, Protonix and Adderall. The patient has had prior admission for nausea, vomiting. 3 years ago, he reported a diagnosis of pancreatitis and hospitalized for prolonged period. At this point, his nausea, vomiting has resolved and he is able t o take his medications. His reports they have been together at least 6 years and she has just w itnessed 1 generalized tonic colonic seizure in that time. Past Medical History: Includes pancreatitis and diabetes mellitus and he is not taking his medicatio ns for at least a year, epilepsy, attention deficit hyperactivity disorder and gastritis. Allergies: PROMETHAZINE. Family History: Diabetes in father. Social History: Denies alcohol or tobacco use. Drinks caffeinated beverages. Review of Systems: Aside from mentioned, denies any fevers or chills, nausea, vomiting aside from mentioned that prior 2 -3 days. No dermatological issues. No shortness of breath and no other positives on a 10-point syst ems review. Physical Examination: Vital Signs: Blood pressure 129/75, pulse 71, respiratory rate 18, temperature 99.2, oxygen saturati on 98%. Weight 175 pounds, height 5 feet 9 inches, BMI of 25.8. General: Mr. Lau is resting in bed. He is in no significant distress. HEENT: He is normocephalic, atraumatic. Sclerae anicteric. Oropharynx is moist and pink. Neck: Supple. Chest: Clear. Heart: Regular. Extremities: Show no edema, cyanosis Neurological: He is alert and oriented to situation, place, and person. Follows commands appropriat ave. Cranial nerves 2-12 reveal no deficits. Motor examination, he has no deficits in the arms and legs proximally and distally. Sensory exam intact in upper and lower extremities. Coordination inta ct in upper lower extremities. Gait good stance, stride, and arm swing. Reflexes are symmetric. Laboratory Studies: Complete blood count with differential. He did have an elevated white blood jagruti l count yesterday. Today, it is normal at 10.6, yesterday was 14.9, hemoglobin and hematocrit are no rmal. Chemistries unremarkable. Glucose range from 188 to 270. Initially, calcium of 8.9, after hy dration calcium 8.4. Liver function studies unremarkable. TSH normal. Urinalysis 2+ ketones and tr soledad blood. Toxicology screen shows phenytoin level is low at 8.2, otherwise negative for drug screen . Head CT scan shows no acute pathology. There is paranasal sinus disease. Assessment: Mr. Lau is a 44-year-old patient with a long history of seizures, who was not able to t ingrid his medications over 3 days, he has nausea and vomiting and an apparent complex partial seizure w ithout secondary generalization and have possible demargination next the margination with elevated wh ite blood cell count that is now normal. He has a history of pancreatitis. He is now able to swallo w, has no difficulty holding his medications down and will resume medications. He is followed by a n eurologist in [place] and Dr. Carlos and will follow up regarding those symptoms. He also reports p ain in the lower back with some radiation into the right lower extremity and actually has slight asym metry of his reflexes with slight decrease in the right patella compared to the left and some decreas ed sensation in the right anterior leg compared to the left side. Plan: 1.Follow up with a neurologist in [place]. 2.Continue antiepileptic medications. 3.Consider gabapentin 300 mg twice daily and cut back the use of narcotics. 4.Follow up with his Psychiatry as appropriate for his attention deficit hyperactivity disorder and medications. 5.He was told to not operate heavy machinery or drive a car for 3 months from the date of his last s eizure. ROSANNA/REJI Voice ID: [id number] Report ID: [id number]
== END 2019-12-14 18:21 | disposition home or self-care (01) ==
LOC: ER 13:27 → ERHOLD 20:59 → 2ND 22:25
PROVIDERS: ADMIT Internal Medicine; ATTEND Internal Medicine
DX: G93.41 Metabolic encephalopathy (principal); K52.9 Noninfective gastroenteritis and colitis, unspecified; E11.65 Type 2 diabetes mellitus with hyperglycemia; G40.209 Localization-related (focal) (partial) symptomatic epilepsy and epileptic syndromes with complex partial seizures, not intractable, without status epilepticus; Z11.59 Encounter for screening for other viral diseases; K21.9 Gastro-esophageal reflux disease without esophagitis; G89.29 Other chronic pain; M54.5 Low back pain; F90.9 Attention-deficit hyperactivity disorder, unspecified type; Z91.14 Patient's other noncompliance with medication regimen; J32.0 Chronic maxillary sinusitis; F17.220 Nicotine dependence, chewing tobacco, uncomplicated; Z79.84 Long term (current) use of oral hypoglycemic drugs; Z79.899 Other long term (current) drug therapy
CPT/HCPCS: 85025 ×2; 80048 ×2; 36415; 83735; 84100; 82947 ×4; 80076; 80307 ×8; 80185; 84443; 81003; 83690; 70450; 94760 ×2; 99285; U0002; J1165; J1650; J1953; J7030 ×3; J2405 ×4; G0378 ×2

== ENCOUNTER 2023-02-21 12:26 | Emergency (ER) | payer BC, SELFPAY ==
--- OUTSIDE RECORDS SUMMARY | 2023-02-21 12:29 | XMS REPORT | Continuity of Care Document ---
:1975 Author Organization [facility] t Address [address] [facility] [address] [place] [address] Care Team Providers Name Role Phone Asked, No Pcp Primary Care Physician Unavailable ED MILLAN Attending Clinician Unavailable MADINA VENCES Attending Clinician Unavailable DYAN PINO Attending Clinician Unavailable HUMERA PHELPS Attending Clinician Unavailable SEBASTIEN MILLS Attending Clinician Unavailable SABINE MENCHACA Attending Clinician Unavailable SHERRI TELLO Attending Clinician Unavailable HUMERA PHELPS Admitting Clinician Unavailable Problems This patient has no known problems. Allergies, Adverse Reactions, Alerts This patient has no known allergies or adverse reactions. Social History Social Habit Start Date Stop Date Quantity Comments Source Gender identity [facility] Sexual orientation Method [facility] Sex Assigned At [birth year] Met [facility] 00:00:00 00:00:00 Smoking Status Start Date Stop Date Source Tobacco smoking consumption unknown [facility] Medications This patient has no known medications. Procedures This patient has no known procedures. Plan of Care Planned Activity Planned Date Details Comments Source Future Scheduled 2022-09-09 COVID-19 VACCINE (#1) [facility] Test 13:47:07 [code = COVID-19 VACCINE (#1)] Future Scheduled 2022-09-09 Hepatitis C screening [facility] Test 13:47:07 (procedure) [code = 868486963] Future Scheduled 2022-09-09 COLONOSCOPY SCREENING [facility] Test 13:47:07 [code = COLONOSCOPY SCREENING] Future Scheduled 2022-09-09 INFLUENZA VACCINE [facility] Test 13:47:07 [code = INFLUENZA VACCINE] Future Scheduled 2022-09-09 COVID-19 VACCINE (#1) [facility] Test 13:47:07 [code = COVID-19 VACCINE (#1)] Future Scheduled 2022-09-09 Hepatitis C screening [facility] Test 13:47:07 (procedure) [code = [id number]] Future Scheduled 2022-09-09 COLONOSCOPY SCREENING [facility] Test 13:47:07 [code = COLONOSCOPY SCREENING] Future Scheduled 2022-09-09 INFLUENZA VACCINE [facility] Test 13:47:07 [code = INFLUENZA VACCINE] Future Scheduled 2022-09-09 COVID-19 VACCINE (#1) [facility] Test 13:47:07 [code = COVID-19 VACCINE (#1)] Future Scheduled 2022-09-09 Hepatitis C screening [facility] Test 13:47:07 (procedure) [code = [id number]] Future Scheduled 2022-09-09 COLONOSCOPY SCREENING [facility] Test 13:47:07 [code = COLONOSCOPY SCREENING] Future Scheduled 2022-09-09 INFLUENZA VACCINE [facility] Test 13:47:07 [code = INFLUENZA VACCINE] Future Scheduled 2022-09-09 COVID-19 VACCINE (#1) [facility] Test 13:47:07 [code = COVID-19 VACCINE (#1)] Future Scheduled 2022-09-09 [facility] Test 13:47:07 (procedure) [code = [id number]] Future Scheduled 2022-09-09 [facility] 13:47:07 [code = COLONOSCOPY SCREENING] Future Scheduled 2022-09-09 [facility]ACCINE [facility] 13:47:07 [code = INFLUENZA VACCINE] Future Scheduled 2022-09-09 COVID-19 VACCINE (#1) [facility] 13:47:07 [code = COVID-19 VACCINE (#1)] Future Scheduled 2022-09-09 [facility] 13:47:07 (procedure) [code = [id number]] Future Scheduled 2022-09-09 [facility] 13:47:07 [code = COLONOSCOPY SCREENING] Future Scheduled 2022-09-09 INFLUENZA VACCINE [facility] Test 13:47:07 [code = INFLUENZA VACCINE] Future Scheduled 2022-09-09 COVID-19 VACCINE (#[facility]) [facility] Test 13:47:07 [code = COVID-19 VACCINE (#1)] Future Scheduled 2022-09-09 [facility] C [facility] 13:47:07 (procedure) [code = [id number]] Future Scheduled 2022-09-09 [facility] Test 13:47:07 [code = COLONOSCOPY SCREENING] Future Scheduled 2022-09-09 INFLUENZA VACCINE [facility] Test 13:47:07 [code = INFLUENZA VACCINE] Future Scheduled 2022-09-09 COVID-19 VACCINE (#1) [facility] Test 13:47:07 [code = COVID-19 VACCINE (#1)] Future Scheduled 2022-09-09 [facility] C [facility] 13:47:07 (procedure) [code = [id number]] Future Scheduled 2022-09-09 [facility] Test 13:47:07 [code = COLONOSCOPY SCREENING] Future Scheduled 2022-09-09 INFLUENZA VACCINE [facility] Test 13:47:07 [code = INFLUENZA VACCINE] Future Scheduled 2022-05-20 [facility]ZA VACCINE [facility] Test 07:46:51 [code = INFLUENZA VACCINE] Future Scheduled 2022-05-20 COVID-19 VACCINE (#1) [facility] 07:46:51 [code = COVID-19 VACCINE (#1)] Future Scheduled 2022-05-20 [facility] C [facility] 07:46:51 (procedure) [code = [id number]] Future Scheduled 2022-05-20 [facility]ING [facility] 07:46:51 [code = COLONOSCOPY SCREENING] Future Scheduled 2022-05-20 INFLUENZA VACCINE [facility] Test 07:46:51 [code = INFLUENZA VACCINE] Future Scheduled 2022-05-20 COVID-19 VACCINE (#1) [facility] 07:46:51 [code = COVID-19 VACCINE (#1)] Future Scheduled 2022-05-20 [facility] C [facility] 07:46:51 (procedure) [code = 081371786] Future Scheduled 2022-05-20 [facility] 07:46:51 [code = COLONOSCOPY SCREENING] Future Scheduled 2022-05-20 INFLUENZA VACCINE [facility] Test 07:46:51 [code = INFLUENZA VACCINE] Future Scheduled 2022-05-20 COVID-19 VACCINE (#1) [facility] 07:46:51 [code = COVID-19 VACCINE (#1)] Future Scheduled 2022-05-20 [facility] C [facility] 07:46:51 (procedure) [code = 250173229] Future Scheduled 2022-05-20 [facility] Test 07:46:51 [code = COLONOSCOPY SCREENING] Encounters Start End Encounter Admission Attending Care Care Encounter Source Date/Time Date/Time Type Type Clinicians Facility Department ID 2023-02-01 2023-02-02 Emergency E YANA, [facility] [id number] [facility] 13:20:00 07:43:00 ED 00 2022-10-26 2022-10-26 Emergency ER VANGIE, [facility] [id number] [place] 04:56:00 10:05:[address] [id number] On license of [facility] 2022-10-26 2022-10-26 emergency [id number] 04:56:00 04:56:00 [id number] [id number] 5eb 2022-10-24 2022-10-25 Emergency ER ODETTE, [facility] [id number] [place] 15:32:00 01:15:00 DYAN -[id number] On license of [facility] 2022-10-24 2022-10-25 emergency [id number] 15:32:00 01:15:00 [id number] 2022-10-07 2022-10-10 Inpatient ER LENIN, [facility] [id number] [place] 19:34:00 13:42:00 HUMERA -[id number] On license of [facility] 2022-09-08 2022-09-11 Inpatient ER LENIN [facility] [id number] [place] 18:41:00 11:13:00 HUMERA -[id number] On license of [facility] 2022-09-07 2022-09-07 Inpatient ER LENIN [facility] [id number] [place] 14:46:00 10:14:00 HUMERA -[id number] On license of [facility] 2019-12-27 2019-12-27 Outpatient SEBASTIEN MILLS [facility] [id number] [place] 00:00:00 00:00:[address] 2015-12-22 2015-12-22 Outpatient [facility] [id number] [place] 00:00:00 00:00:[address] 2012-02-14 2012-02-14 Outpatient FERNANDA MENCHACA, [facility] [id number] [place] 08:20:00 08:20:00 SABINE [id number] On license of [facility] 2012-01-08 2012-01-10 Inpatient ER LENIN, [facility] [id number] [place] 09:50:00 18:00:00 HUMERA [id number] On license of [facility] 2008-07-24 2008-07-24 Emergency ER TELLO, [facility] [id number] [place] 08:10:00 12:15:00 [facility] -[id number] On license of [facility] Results This patient has no known results.
[2023-02-21 13:34] LABS: Absolute Lymphocytes (CBC) 0.9 K/uL (0.7-4.9); Hematocrit 42.9 % (39.6-49.0); Lymphocytes % 10.6 % (15.3-44.8); MCV 91.8 fL (80-100); MPV 7.7 fL (7.6-11.3); Platelets 222 thou/uL (152-406); RBC Red Blood Cell Count 4.68 M/uL (4.33-5.43)
[2023-02-21] MEDS ORDERED: ONDANSETRON 4 MG/2 ML VIAL ONE ×2 (13:37→17:22)
[2023-02-21] MEDS ORDERED: NA CHLORIDE 0.9% 1,000 ML ONE (13:37)
[2023-02-21] MEDS ORDERED: NA CHLORIDE 0.9% 100 ML ONE ×2 (13:37→13:44)
[2023-02-21] MEDS ORDERED: LEVETIRACETAM 500 MG/5 ML VIAL IV ONE (13:38)
[2023-02-21] MEDS ORDERED: FOSPHENYTOIN PE 500 MG/10 ML VIAL ONE (13:38)
[2023-02-21 13:48] LABS: Albumin 3.9 g/dL (3.4-5.0); Bilirubin Total 0.4 mg/dL (0.2-1.0); Potassium 4.2 mEq/L (3.5-5.1); Protein, Total 7.2 g/dL (6.4-8.2)
[2023-02-21] MEDS ORDERED: PROMETHAZINE INJ 25 MG/ML AMP ONE (14:39)
[2023-02-21] MEDS ORDERED: MORPHINE 4 MG/ML SYR ONE (14:39)
[2023-02-21 14:48] LABS: Specific Gravity 1.019 (1.005-1.030); Urine Bacteria None Seen /HPF (<20); Urine Bilirubin NEGATIVE (Negative); Urine Blood Negative (Negative); Urine Clarity Clear (Clear); Urine Color Light-Yellow (Yellow); Urine Glucose 3+ (Negative); Urine Mucus Slight /HPF (None Seen); Urine Protein NEGATIVE (Negative); Urine RBC <5 /HPF (None Seen); Urine Urobilinogen Normal (Normal)
[2023-02-21 14:57] LABS: Barbiturates NEGATIVE (NEGATIVE); Benzodiazepines NEGATIVE (NEGATIVE); Cocaine NEGATIVE (NEGATIVE); METHAMPHETAM NEGATIVE (NEGATIVE); Methadone NEGATIVE (NEGATIVE); Opiates NEGATIVE (NEGATIVE); Phencyclidine NEGATIVE (NEGATIVE); THC Cannibis NEGATIVE (NEGATIVE)
--- NOTE | 2023-02-21 16:04 | RAD REPORT ---
EXAM DESCRIPTION: CT - Abdomen Pelvis W Contrast - 02/21/2023 3:28 pm CLINICAL HISTORY: ABD PAIN COMPARISON: Abdomen Pelvis W Contrast dated 08/17/2016; CT ABD PELVIS W CONTRAST dated 01/13/2014 TECHNIQUE: Thin cut axial CT imaging of the abdomen and pelvis was performed following intravenous a dministration of 100 mL Isovue 300. Multiplanar reformats were generated and reviewed. All CT scans are performed using dose optimization technique as appropriate and may include automated exposure control or mA/KV adjustment according to patient size. FINDINGS: Motion artifact somewhat limits evaluation. No suspicious findings in the lung bases. The liver, spleen, adrenal glands, and pancreas show no suspicious findings. Gallbladder and biliary tree are also without suspicious finding. Symmetric renal function is seen with no hydronephrosis or suspicious renal mass. No dilated bowel loops or bowel wall thickening. No free air, free fluid or inflammatory stranding. N o hernia, mass or bulky lymphadenopathy. The urinary bladder is without significant finding. No suspicious bony findings. 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 Partial lumbarization of S1. IMPRESSION: No acute intra-abdominal process within limits of motion artifact. Incidental findings a s above.
--- NOTE | 2023-02-21 17:51 | ER ---
Nurse's Notes [facility] Name: Coreen Lau Jr Age: 47 yrs Sex: Male : 1975 Arrival Date: 02/21/2023 Time: 12:26 Bed 2 Private MD: Diagnosis: Cyclical vomiting, intractable;Abdominal pain, Generalized Presentation: 02/21 12:49 Chief complaint: Patient states: vomiting since this am. Concerned because he couldn't me1 keep his seizure meds down today. Coronavirus screen: Vaccine status: Patient reports being unvaccinated. Coronavirus screen: muscle pain, nausea, vomiting. Ebola Screen: No symptoms or risks identified at this time. Initial Sepsis Screen: Does the patient meet any 2 criteria? No. Patient's initial sepsis screen is negative. Does the patient have a suspected source of infection? No. Patient's initial sepsis screen is negative. Risk Assessment: Do you want to hurt yourself or someone else? Patient reports no desire to harm self or others. Onset of symptoms was February 21, 2023. 12:49 Method Of Arrival: Wheelchair me1 12:49 Acuity: SHAILA 3 me1 Historical: - Allergies: 12:51 No Known Allergies; me1 - PMHx: 12:51 ADD/ADHD; Diabetes - NIDDM; epilepsy; Pancreatitis; Seizures; me1 - PSHx: 12:51 None; me1 - Immunization history:: Adult Immunizations up to date. - Social history:: Smoking status: Patient denies any tobacco usage or history of. - Family history:: not pertinent. Screenin:48 [facility] ED Fall Risk Assessment (Adult) History of falling in the last 3 months, ld1 including since admission No falls in past 3 months (0 pts). Abuse screen: Denies threats or abuse. Denies injuries from another. Nutritional screening: No deficits noted. Tuberculosis screening: No symptoms or risk factors identified. Assessment: 13:45 General: Appears in no apparent distress. uncomfortable, Behavior is calm, cooperative, ld1 appropriate for age. Pain: Complains of pain in abdomen Pain does not radiate. Pain currently is 8 out of 10 on a pain scale. Quality of pain is described as throbbing. 13:45 Neuro: Level of Consciousness is awake, alert, obeys commands, Oriented to person, ld1 place, time, situation. Cardiovascular: Capillary refill < 3 seconds Patient's skin is warm and dry. Respiratory: Airway is patent Respiratory effort is even, unlabored. GI: Abdomen is flat, non-distended, Reports lower abdominal pain, upper abdominal pain, nausea, vomiting. : No signs and/or symptoms were reported regarding the genitourinary system. EENT: No signs and/or symptoms were reported regarding the EENT system. Derm: No signs and/or symptoms reported regarding the dermatologic system. Musculoskeletal: No signs and/or symptoms reported regarding the musculoskeletal system. 19:00 General: Appears in no apparent distress. uncomfortable, Behavior is calm, cooperative. jw7 Pain: Denies pain. Neuro: No deficits noted. [place]olla Agitation-Sedation Scale (RASS): 0 - Alert and Calm. Cardiovascular: No deficits noted. Capillary refill < 3 seconds Patient's skin is warm and dry. Respiratory: No deficits noted. Airway is patent Trachea midline Respiratory effort is even, unlabored, Respiratory pattern is regular, symmetrical. GI: No deficits noted. Abdomen is flat, non-distended. : No deficits noted. No signs and/or symptoms were reported regarding the genitourinary system. EENT: No deficits noted. No signs and/or symptoms were reported regarding the EENT system. Derm: No deficits noted. No signs and/or symptoms reported regarding the dermatologic system. Musculoskeletal: No deficits noted. No signs and/or symptoms reported regarding the musculoskeletal system. Vital Signs: 12:49 BP 170 / 89; Pulse 78; Resp 17; Temp 98.4(O); Pulse Ox 100% on R/A; Weight 77.11 kg; me1 Height 5 ft. 10 in. ; 13:45 BP 166 / 90; Pulse 64; Resp 18; Pulse Ox 100% on R/A; Pain 8/10; ld1 14:40 BP 155 / 87; Pulse 92; Resp 16; Pulse Ox 100% ; ko1 16:31 BP 165 / 92; Pulse 84; Resp 18; Pulse Ox 100% ; ko1 17:55 BP 167 / 79; Pulse 83; Resp 18; Pulse Ox 99% ; ko1 19:00 BP 170 / 82; Pulse 80; Resp 16 S; Pulse Ox 100% on R/A; jw7 12:49 Body Mass Index 24.39 (77.11 kg, 177.8 cm) me1 13:45 Pain Scale: Adult ld1 ED Course: 12:27 Patient arrived in ED. mr 12:31 Mallorie Zhang MD is Attending Physician. cp3 12:51 Triage completed. me1 12:51 Arm band placed on Patient placed in waiting room. me1 13:24 Ethanol Sent. bc6 13:24 Comprehensive Metabolic Panel Sent. bc6 13:24 CBC with Diff Sent. bc6 13:24 Inserted saline lock: 20 gauge in right antecubital area, using aseptic technique. bc6 Blood collected. 13:38 CBC with Diff Sent. ld1 13:48 Patient has correct armband on for positive identification. Placed in gown. Bed in low ld1 position. Call light in reach. Side rails up X2. monitoring tech on. Pulse ox on. NIBP on. Door closed. Noise minimized. Warm blanket given. 13:48 No provider procedures requiring assistance completed. ld1 14:40 UDS Sent. bc6 14:40 Urinalysis W/Microscopic Sent. 6 14:51 Andreea Everett, PRETTY is Primary Nurse. ko1 15:30 CT Abd/Pelvis - IV Contrast Only In Process Unspecified. EDMS 16:57 Lipase Sent. ko1 17:49 Matthew Michelle MD is Referral Physician. cp3 17:55 Provided Education on: na. ko1 19:22 IV discontinued, intact, bleeding controlled, No redness/swelling at site. Pressure jw7 dressing applied. Administered Medications: 13:38 Drug: NS 0.9% IV 1000 ml IV at 1 bolus Per protocol; 1000 mL bolus Route: IV; Rate: 1 ld1 bolus; Site: right antecubital; 19:23 Follow up: Response: No adverse reaction; IV Status: Completed infusion; IV Intake: jw7 1000ml 13:38 Drug: Ondansetron IVP 4 mg IVP once; over 2 minutes Route: IVP; Site: right antecubital;ld1 19:23 Follow up: Response: No adverse reaction jw7 13:38 Drug: Keppra IV 1000 mg IV at bolus bolus Route: IV; Rate: bolus; Site: right ld1 antecubital; 19:23 Follow up: Response: No adverse reaction; IV Status: Completed infusion jw7 13:45 Drug: Fosphenytoin IVPB 1 grams IVPB once; (mix in 50 to 100mL NS) Route: IVPB; Site: ld1 right antecubital; 19:23 Follow up: Response: No adverse reaction; IV Status: Completed infusion; IV Intake: jw7 100ml 14:48 Drug: morphine IVP or IV 4 mg IVP once over 4 mins Route: IVP; Infused Over: 4 mins; cp4 Site: right antecubital; 19:24 Follow up: Response: No adverse reaction jw7 14:48 Drug: Promethazine IVP 12.5 mg IVP once Route: IVP; Site: right antecubital; cp4 19:24 Follow up: Response: No adverse reaction jw7 17:24 Drug: Ondansetron IVP 4 mg IVP once; over 2 minutes Route: IVP; Site: right antecubital;ld1 19:24 Follow up: Response: No adverse reaction jw7 Medication: 13:48 VIS not applicable for this client. ld1 Intake: 19:23 IV: 1000ml; Total: 1000ml. jw7 19:23 IV: 100ml; Total: 1100ml. jw7 Outcome: 17:51 Discharge ordered by . cp3 19:22 Discharged to home via wheelchair, jw7 19:22 Condition: stable 19:22 Discharge instructions given to patient, family, Instructed on discharge instructions, follow up and referral plans. medication usage, Demonstrated understanding of instructions, follow-up care, medications, Prescriptions given X 3, 19:24 Patient left the ED. jw7 Signatures: Dispatcher [employer] Mallorie Medrano MD MD cp3 Delma Duenas, [facility] Reg mr Pamela Hansen RN RN ld1 Dinora Sadler RN RN jw7 Andreea Everett RN RN ko1 Shanae Reagan bc6 Josette Chavarria RN RN 1 Shauna Joya cp4
--- NOTE | 2023-02-21 17:52 | EDPHYS ---
Physician Documentation [facility] Name: Calista King Jr Age: 47 yrs Sex: Male : 1975 Arrival Date: 02/21/2023 Time: 12:26 Bed 2 Private MD: ED Physician Mallorie Zhang HPI: 02/21 14:48 This 47 yrs old Male presents to ER via Wheelchair with complaints of Vomiting, cp3 Abdominal Pain. 14:48 The patient presents to the emergency department with nausea, vomiting, abdominal pain. cp3 Patient is a 47-year-old male who endorses 6 hours of nausea, vomiting, abdominal cramping. The patient states that nausea and vomiting started this morning and he has had no symptom relief has not taken anything for it. Patient concerned because he was unable to keep down his Keppra and fosphenytoin for his seizure disorder. The patient denies diarrhea, fever, chills. No history of bowel obstruction. 14:48 The patient has experienced a previous episode. cp3 Historical: - Allergies: 12:51 No Known Allergies; me1 - PMHx: 12:51 ADD/ADHD; Diabetes - NIDDM; epilepsy; Pancreatitis; Seizures; me1 - PSHx: 12:51 None; me1 - Immunization history:: Adult Immunizations up to date. - Social history:: Smoking status: Patient denies any tobacco usage or history of. - Family history:: not pertinent. ROS: 14:48 Constitutional: Negative for fever, chills, and weight loss, Eyes: Negative for injury, cp3 pain, redness, and discharge, ENT: Negative for injury, pain, and discharge, Neck: Negative for injury, pain, and swelling, Cardiovascular: Negative for chest pain, palpitations, and edema, Respiratory: Negative for shortness of breath, cough, wheezing, and pleuritic chest pain, Back: Negative for injury and pain, : Negative for injury, bleeding, discharge, and swelling, MS/Extremity: Negative for injury and deformity, Skin: Negative for injury, rash, and discoloration, Neuro: Negative for headache, weakness, numbness, tingling, and seizure, Psych: Negative for depression, anxiety, suicide ideation, homicidal ideation, and hallucinations, Allergy/Immunology: Negative for hives, rash, and allergies, Endocrine: Negative for neck swelling, polydipsia, polyuria, polyphagia, and marked weight changes, Hematologic/Lymphatic: Negative for swollen nodes, abnormal bleeding, and unusual bruising, 14:48 Abdomen/GI: Positive for abdominal pain, cp3 14:48 Abdomen/GI: Positive for nausea and vomiting, cp3 Exam: 14:48 Constitutional: This is a well developed, well nourished patient who is awake, alert, cp3 and in no acute distress. Head/Face: Normocephalic, atraumatic. Chest/axilla: Normal chest wall appearance and motion. Nontender with no deformity. No lesions are appreciated. Cardiovascular: Regular rate and rhythm with a normal S1 and S2. No gallops, murmurs, or rubs. Normal PMI, no JVD. No pulse deficits. Respiratory: Lungs have equal breath sounds bilaterally, clear to auscultation and percussion. No rales, rhonchi or wheezes noted. No increased work of breathing, no retractions or nasal flaring. Back: No spinal tenderness. No costovertebral tenderness. Full range of motion. Male : Normal genitalia with no discharge or lesions. MS/ Extremity: Pulses equal, no cyanosis. Neurovascular intact. Full, normal range of motion. Neuro: Awake and alert, GCS 15, oriented to person, place, time, and situation. Cranial nerves II-XII grossly intact. Motor strength 5/5 in all extremities. Sensory grossly intact. Cerebellar exam normal. Normal gait. Psych: Awake, alert, with orientation to person, place and time. Behavior, mood, and affect are within normal limits. 14:48 Skin: Warm, dry with normal turgor. Normal color with no rashes, no lesions, and no evidence of cellulitis. 14:48 Abdomen/GI: Exam negative for Vital Signs: 12:49 BP 170 / 89; Pulse 78; Resp 17; Temp 98.4(O); Pulse Ox 100% on R/A; Weight 77.11 kg; me1 Height 5 ft. 10 in. ; 13:45 BP 166 / 90; Pulse 64; Resp 18; Pulse Ox 100% on R/A; Pain 8/10; ld1 14:40 BP 155 / 87; Pulse 92; Resp 16; Pulse Ox 100% ; ko1 16:31 BP 165 / 92; Pulse 84; Resp 18; Pulse Ox 100% ; ko1 17:55 BP 167 / 79; Pulse 83; Resp 18; Pulse Ox 99% ; ko1 19:00 BP 170 / 82; Pulse 80; Resp 16 S; Pulse Ox 100% on R/A; jw7 12:49 Body Mass Index 24.39 (77.11 kg, 177.8 cm) me1 13:45 Pain Scale: Adult ld1 MDM: 12:47 Patient medically screened. [facility] 16:28 Differential diagnosis: Nonspecific abd pain, gastritis, pancreatitis, appendicitis, cp3 diverticulitis, viral gastroenteritis, gastroenteritis. Data reviewed: vital signs, nurses notes. Consideration of Admission/Observation Escalation of care including admission/observation considered. Response to treatment: the patient's symptoms have markedly improved after treatment, the patient is now symptom free. 16:54 ED course: family updated- awaiting lipase. 3 17:47 I considered the following discharge prescriptions or medication management in the [facility] emergency department Medications were administered in the Emergency Department. See MAR. Historians other than the Patient: Parent: advised he has multiple episodes in the past. 02/21 13:18 Order name: CBC with Diff; Complete Time: 14:45 [facility] 02/21 13:18 Order name: Comprehensive Metabolic Panel; Complete Time: 14:45 [facility] 02/21 14:47 Interpretation: NA 135; K 4.2; CL 101; CO2 29; ANION GAP 9.2; GLUC 247; BUN 9; CRE cp3 0.80; GFR 110; AST 7; ALT 27; ALK 118; BILIT 0.4; CA 8.8; TP 7.2; ALB 3.9; GLOB 3.3; A/G 1.2. 02/21 13:18 Order name: Urinalysis W/Microscopic; Complete Time: 15:14 [facility] 02/21 16:28 Interpretation: URINALYSIS UNREMARKABLE. [facility] 02/21 13:18 Order name: UDS; Complete Time: 15:14 [facility] 02/21 13:18 Order name: Ethanol; Complete Time: 14:45 [facility] 02/21 14:47 Interpretation: ETOH < 10. [facility] 02/21 15:15 Order name: Lipase; Complete Time: 17:22 [facility] 02/21 17:22 Interpretation: LIP 18. [facility] 02/21 15:15 Order name: CT Abd/Pelvis - IV Contrast Only; Complete Time: 16:27 cp3 02/21 16:28 Interpretation: Per Radiologist's finding(s): [facility] [address] [facility] [place] [address] RADIOLOGY SERVICES REPORT Name: CALISTA KING JR Acct Number: [id number] :1975 Age:47 Sex:M Ord Phys: Mallorie Zhang MD Unit Number: [id number] [facility] Dr: NONE Status: REG ER ER Exam Date: 02/21/23 EXAM DESCRIPTION: CT - Abdomen Pelvis W Contrast - 02/21/2023 3:28 pm CLINICAL HISTORY: ABD PAIN COMPARISON: Abdomen Pelvis W Contrast dated 08/17/2016; CT ABD PELVIS W CONTRAST dated 01/13/2014 TECHNIQUE: Thin cut axial CT imaging of the abdomen and pelvis was performed following intravenous administration of 100 mL Isovue 300. Multiplanar reformats were generated and reviewed. All CT scans are performed using dose optimization technique as appropriate and may include automated exposure control or mA/KV adjustment according to patient size. FINDINGS: Motion artifact somewhat limits evaluation. No suspicious findings in the lung bases. The liver, spleen, adrenal glands, and pancreas show no suspicious findings. Gallbladder and biliary tree are also without suspicious finding. Symmetric renal function is seen with no hydronephrosis or suspicious renal mass. No dilated bowel loops or bowel wall thickening. No free air, free fluid or inflammatory stranding. No hernia, mass or bulky lymphadenopathy. The urinary bladder is without significant finding. No suspicious bony findings. 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 Partial lumbarization of S1. IMPRESSION: No acute intra-abdominal process within limits of motion artifact. Incidental findings as above. Signed By: Carmelo Estrada Signed AT: 02/21/23 1604 . 02/21 13:18 Order name: Saline Lock; Complete Time: 13:24 cp3 Administered Medications: 13:38 Drug: NS 0.9% IV 1000 ml IV at 1 bolus Per protocol; 1000 mL bolus Route: IV; Rate: 1 ld1 bolus; Site: right antecubital; 19:23 Follow up: Response: No adverse reaction; IV Status: Completed infusion; IV Intake: jw7 1000ml 13:38 Drug: Ondansetron IVP 4 mg IVP once; over 2 minutes Route: IVP; Site: right antecubital;ld1 19:23 Follow up: Response: No adverse reaction jw7 13:38 Drug: Keppra IV 1000 mg IV at bolus bolus Route: IV; Rate: bolus; Site: right ld1 antecubital; 19:23 Follow up: Response: No adverse reaction; IV Status: Completed infusion jw7 13:45 Drug: Fosphenytoin IVPB 1 grams IVPB once; (mix in 50 to 100mL NS) Route: IVPB; Site: ld1 right antecubital; 19:23 Follow up: Response: No adverse reaction; IV Status: Completed infusion; IV Intake: jw7 100ml 14:48 Drug: morphine IVP or IV 4 mg IVP once over 4 mins Route: IVP; Infused Over: 4 mins; cp4 Site: right antecubital; 19:24 Follow up: Response: No adverse reaction jw7 14:48 Drug: Promethazine IVP 12.5 mg IVP once Route: IVP; Site: right antecubital; cp4 19:24 Follow up: Response: No adverse reaction jw7 17:24 Drug: Ondansetron IVP 4 mg IVP once; over 2 minutes Route: IVP; Site: right antecubital;ld1 19:24 Follow up: Response: No adverse reaction jw7 Disposition Summary: 02/21/23 17:51 Discharge Ordered Notes: Location: Home cp3 Problem: new cp3 Condition: Stable cp3 Diagnosis - Cyclical vomiting, intractable cp3 - Abdominal pain, Generalized cp3 Followup: cp3 - With: Matthew Michelle MD - When: - Reason: Recheck today's complaints Discharge Instructions: - Discharge Summary Sheet cp3 - Abdominal Pain, Adult cp3 - Nausea and Vomiting, Adult, [id number] cp3 Forms: - Medication Reconciliation Form cp3 - Thank You Letter cp3 - Antibiotic Education cp3 - Prescription Opioid Use cp3 - Patient Portal Instructions cp3 - Leadership Thank You Letter cp3 Prescriptions: - Reglan 10 mg Oral Tablet - take 1 tablet by ORAL route every 6 hours . take 30 minutes before meals and at cp3 bedtime; 100 tablet; Refills: 0, Product Selection Permitted - Zofran 4 mg Oral Tablet - take 1 tablet by ORAL route every 12 hours As needed; 20 tablet; Refills: 0, cp3 Product Selection Permitted - promethazine 25 mg Oral Tablet - take 1 tablet by ORAL route every 6 hours As needed; 20 tablet; Refills: 0, cp3 Product Selection Permitted Signatures: Dispatcher [employer] Mallorie Medrano MD MD cp3 Pamela Hansen RN RN ld1 Josette Chavarria RN RN pr1 Shauna Joya cp4 Dinora Sadler RN jw7 Corrections: (The following items were deleted from the chart) 16:28 14:47 WBC 8.30; RBC 4.68; HGB 14.9; HCT 42.9; MCV 91.8; MCH 32.0; MCHC 34.8; PLT 222; cp3 RDW 12.8; MPV 7.7; BR[place]ON% 85.2; LYM% 10.6; MN% 3.9; EOSINOPHIL % 0.1; BASO% 0.2; NEUT A 7.1; LYMA 0.9; MNA 0.3; EOSA 0.0; BASOA 0.0. cp3
[2023-02-21 20:41] VITALS: TEMP 98.4
[2023-02-21 20:50] VITALS: BP 170/82; O2SAT 100
== END 2023-02-21 19:24 | disposition home or self-care (01) ==
LOC: ER 12:26
DX: R11.15 Cyclical vomiting syndrome unrelated to migraine (principal); R10.84 Generalized abdominal pain
CPT/HCPCS: 36415; 74177; 80053; 80307; 81001; 82077; 83690; 85025; J1953; J2405; J2550; J7030; Q2009; Q9967